=== PATIENT | female | born 1935 | race Caucasian/White ===

== ENCOUNTER → 2017-12-31 | Outpatient (CLI) | payer OTHER, MEDICARE | LOC: RAD 10:02 | DX: Z12.31 Encounter for screening mammogram for malignant neoplasm of breast (principal) ==

== ENCOUNTER → 2018-01-07 | Outpatient (CLI) | payer OTHER, MEDICARE | LOC: RAD 13:12 | DX: M47.26 Other spondylosis with radiculopathy, lumbar region (principal); M41.86 Other forms of scoliosis, lumbar region ==

== ENCOUNTER → 2019-01-05 | Outpatient (CLI) | payer OTHER, MEDICARE | LOC: RAD 10:54 | DX: Z12.31 Encounter for screening mammogram for malignant neoplasm of breast (principal) ==

== ENCOUNTER → 2019-01-15 | Outpatient (CLI) | payer OTHER, MEDICARE | LOC: ULTRA 00:42 | DX: N60.01 Solitary cyst of right breast (principal); N60.41 Mammary duct ectasia of right breast; N63.23 Unspecified lump in the left breast, lower outer quadrant; N60.42 Mammary duct ectasia of left breast ==

== ENCOUNTER → 2019-12-22 | Outpatient (CLI) | payer OTHER, MEDICARE | LOC: RAD 09:06 | DX: M47.22 Other spondylosis with radiculopathy, cervical region (principal); M48.02 Spinal stenosis, cervical region; M43.12 Spondylolisthesis, cervical region; M12.88 Other specific arthropathies, not elsewhere classified, other specified site; M25.78 Osteophyte, vertebrae ==

== ENCOUNTER → 2019-12-29 | Outpatient (CLI) | payer OTHER, MEDICARE | LOC: MRI 10:08 | DX: M47.22 Other spondylosis with radiculopathy, cervical region (principal); M25.78 Osteophyte, vertebrae; M48.02 Spinal stenosis, cervical region ==

== ENCOUNTER → 2020-01-12 | Outpatient (CLI) | payer OTHER, MEDICARE ==
[~2020-01-12] VITALS: Ht 172.7 cm; Wt 74.8 kg
[~2020-01-12] MED LIST: ASA81BEC PO; BIOTIN PLUS KE1 EACH PO; CALCIUM 600 +1 EAC7 PO; CENTRUM ADULTS1 EACH PO; KRILL OIL500 MG PO; LISINOPRIL-HCT1 EAC1 PO; METAMUCIL PACK3.4 GM PO; REQUIP 1 MG TABL1 M1 PO; ROSADAN45 GM; TOPROL XL50 MG PO; VITAMIN B12-FO1 EAC1 PO; ZOCOR20 MG PO
--- NOTE | ~2020-01-12 | HPC ---
[facility] [place] [address] PAIN MANAGEMENT CONSULTATION Name: FRANCA FORD Room #: REG KIERRA Kamlesh#: [id number] Admission: 01/12/20 Attend Phys: Baldo Reid DO Discharge: Date of : 37 Report #: [id number] THIS REPORT FOR: cc: Kris Castellon,Baldo Mullins DO ~ CC: Baldo Castellon MD DATE OF SERVICE: 01/12/2020 CHIEF COMPLAINT: Neck pain, right upper extremity pain with paresthesias. HISTORY OF PRESENT ILLNESS: As you know, the patient is a very pleasant 84-year-old female who reports acute onset of neck pain, right upper extremity pain and paresthesia that began 12/17/2019. She denies any specific injury or trauma. The patient initially thought she "slept wrong." Unfortunately, her symptoms did not improve with tincture of time. She sought treatment through wudc-[id number]-[id number] medications from her local pharmacy, again with no improvement in symptoms. She then discussed her case with her PCP who provided her a prednisone therapy, which was extremely helpful in alleviating symptoms while she was on the medication, but unfortunately, her symptoms quickly returned. After return of symptoms, she was then referred to undergo cervical imaging to determine the potential cause of the symptoms she is experiencing. She was then subsequently referred to our clinic to discuss treatment options after the findings show changes concerning for cervical radicular involvement. The patient reports today pain is continuous with rhythmic somewhat throbbing type symptoms. She describes the pain as shooting, aching, throbbing, numbness and tingling. The patient's current pain score 5/10, daily average of 5-8/10, worst pain has been 10/10. The patient states that walking, reaching for anything with her right arm or twisting her neck to the right exacerbates symptoms. Her pain is improved with sitting for long periods of time, lying down to rest on the left side of her body. Otherwise, she has found no improvement in symptoms with treatment other than the prednisone therapy, which was transient in its effect. She has been referred to our service to discuss treatment options for suspected cervical radiculopathy. PAST MEDICAL HISTORY: 1. Hypertension. 2. History of hepatitis. 3. GERD. 4. Degenerative joint disease. 5. Osteoarthritis. 6. Peptic ulcer disease. [address] [address] PAIN MANAGEMENT CONSULTATION Name: FRANCA FORD Room #: REG CLI Kamlesh#: [id number] Admission: 01/12/20 Attend Phys: Baldo Reid DO Discharge: Date of : 37 Report #: [id number] 7. Restless leg syndrome. 8. Dyslipidemia. PAST SURGICAL HISTORY: 1. Excision of an abscess of the left breast in 8. 2. Surgery for hepatitis in 1959. 3. Cholecystectomy in 1960. 4. Hemorrhoidectomy. 5. Hysterectomy. 6. Left breast biopsy. 7. Surgery for vertigo. SOCIAL HISTORY: The patient denies tobacco, IV or illicit drug use. She admits to an occasional alcohol beverage. 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 She is not receiving workmen's compensation nor is she trying to obtain disability benefits. She is not in litigation in regards to pain. She is unaccompanied today. REVIEW OF SYSTEMS: Positive for weight change, decrease in appetite, fatigue and weakness, wearing corrective eyewear, hearing loss with tinnitus, nosebleeds, mouth sores, shortness of breath with walking or lying flat, loss of appetite, frequent urination, nocturia, incontinence and dribbling to urine, varicose veins, tremors, nervousness, slow to heal after cuts, bleeding and bruising tendencies, neck pain, right upper extremity pain and paresthesias. All other review of systems negative per 12-point review of systems other than those listed in history of present illness. Pain impact score 19 of 70 indicating mild interference of daily activities secondary to pain. ALLERGIES: CODEINE, CITALOPRAM. CURRENT MEDICATIONS: Simvastatin 20 mg once a day, lisinopril/hydrochlorothiazide 20/12.5 mg once a day, metoprolol 50 mg once a day, ropinirole 1 mg once a day, metronidazole cream applied topically to affected areas, multivitamin 1 tab per day, calcium carbonate 1 tab per day, cyanocobalamin 1 tab per day, Krill oil 500 mg once a day, aspirin 81 mg per day, Metamucil 3.4 grams up to twice a day, biotin and keratin tablet 1 tab per day. IMAGING: MRI cervical spine obtained 12/29/2019 shows degenerative changes with reversal of the normal cervical lordosis. No significant central canal stenosis. There are variable degrees of neural foraminal stenosis, the most significant at the C5-C6 level, which shows moderate to severe. PQRS: The patient has arthritic changes of the cervical spine, lumbar spine, [facility] [address] [place] [address] PAIN MANAGEMENT CONSULTATION Name: FRANCA FORD Room #: REG KIERRA Whitlock#: [id number] Admission: 01/12/20 Attend Phys: Baldo Reid DO Discharge: Date of : 37 Report #: [id number] bilateral hands, bilateral fingers and knees. No rheumatoid arthritis. She is placing pain intensity anywhere from 5-8/10. She is not a fall risk, but has had a fall in last 3 months. Apparently, she tripped over objects at home, which have been corrected by clearing walkways. She is not on blood thinners. She is treated for hypertension. She is not on chronic opioids and has a low opioid addiction potential. Pain impact score is 19 of 70 indicating ykbt-ic-bhsquijr interference of daily activities secondary to pain. PHYSICAL EXAMINATION: VITAL SIGNS: Blood pressure 117/68, pulse is 71, respiratory rate 14 and unlabored. The patient is 99% on room air. Height 5 feet 8 inches tall, weight 165 pounds, BMI calculated 25.1. GENERAL: Well-developed, well-nourished, well-hydrated 84-year-old female appearing stated age, pain is rated today 5-8/10. HEENT: Normocephalic, atraumatic. Pupils equal, round, reactive to light. Extraocular muscles are intact. NEUROLOGIC: Speech fluent. The patient deemed a good historian. LUNGS: Clear. No wheeze, rhonchi or rales. CARDIOVASCULAR: Regular. No appreciable gallop, no rub. ABDOMEN: Soft, nontender and normoactive bowel sounds. EXTREMITIES: Show no clubbing, no cyanosis, and no edema. MUSCULOSKELETAL: Upper extremity strength appears symmetrical 5/5. Muscle bulk and tone is equal and symmetrical in comparing right upper extremity to left. Spurling's test positive right, negative left. Cervical provocation testing is met with increasing cervical pain, no radiation of symptoms. Cervical traction improves right arm pain. There is moderate restriction of motion to the cervical rotation to the right, mild to moderate left. No surgical scars. She is intact to light touch from C5-T1 dermatomes. ASSESSMENT: 1. Cervical radiculopathy. 2. Neural foraminal stenosis of the cervical spine. 3. Degeneration of the cervical spine. 4. Cervical spondylosis with radiculopathy. 5. Chronic intractable pain. PLAN: 1. Based on today's physical exam and history the patient has provided, the description the patient uses in regards to pain as well as location of symptoms, likely source of the patient's pain is cervical radiculopathy. The patient and I did spend about 20 minutes of time today reviewing her recent MRI describing the findings therein and how they correlate to her symptoms. It does appear that she is suffering from the neural foraminal stenosis noted at the C5-C6 level given the distribution of symptoms on the right today. We discussed with the patient treatment options for cervical radiculopathy secondary to [place] [address] PAIN MANAGEMENT CONSULTATION Name: FRANCA FORD Room #: REG KIERRA Whitlock#: [id number] Admission: 01/12/20 Attend Phys: Baldo Reid DO Discharge: Date of : 37 Report #: [id number] We discussed physical therapy, stretching exercises and traction techniques as a treatment option. We discussed medication management utilizing neuropathic pain medication such as nortriptyline, amitriptyline, Cymbalta, Lyrica or gabapentin. We discussed cervical epidural injections under fluoroscopic guidance, for which the patient was referred to our service. We discussed finally surgical decompression and foraminotomies to alleviate the patient's symptoms. After reviewing the risks and benefits of all proposed treatment options, the patient chose to begin with a cervical epidural injection under fluoroscopic guidance. 2. The patient was advised risks and benefits of a cervical epidural injection. These risks include but are not necessarily limited to bleeding, bruising, infection, worsening pain, no relief of pain, also risk of temporary or permanent muscle weakness, temporary or permanent nerve damage, possible paralysis and . The patient states understood and wished to proceed. 3. No medication changes made at today's visit. The patient will continue current medical therapy as previously prescribed. 4. We will see the patient back in followup visit in 30 days. At that time determine if a repeat cervical epidural injection might be warranted. 5. We wish to thank Dr. Castellon for the referral of the patient to our clinic. We will keep you apprised of response to treatment as we address cervical radiculopathy. Again, we wish to thank you for the opportunity to see this patient in consultation. PROCEDURE NOTE DESCRIPTION OF PROCEDURE: Cervical epidural steroid injection under fluoroscopic guidance. This is the first procedure of the first series that the patient is undergoing. After obtaining written consent, the patient was taken back to the fluoroscopy suite and placed in a prone position with separate pillows under chest and forehead to decrease cervical lordosis. The skin overlying the cervical area was prepped and draped in an aseptic fashion. The lower cervical vertebral interspace was identified by AP fluoroscopy. The skin and subcutaneous tissue overlying the target site of injection was anesthetized using 3 mL of 1% lidocaine. A 20-gauge 3.5 inch Tuohy needle was advanced under fluoroscopic guidance toward the epidural space using a midline approach. The epidural space was identified using a loss of resistance to air technique. After negative aspiration for heme or cerebrospinal fluid, a total of 1 mL of Omnipaque was injected. A cervical epidurogram was confirmed using AP and oblique fluoroscopy. After negative aspiration for heme or cerebrospinal fluid, 5 mL of a solution containing 2 mL 40 mg/mL 80 mg total triamcinolone along with 3 mL of lidocaine 1% was injected in increments. Contrast spread was noted from posterior epidural space. [facility] [address] [place] [address] PAIN MANAGEMENT CONSULTATION Name: FRANCA FORD Room #: REG [facility].#: [id number] Admission: 01/12/20 Attend Phys: Baldo Reid DO Discharge: Date of : 37 Report #: [id number] needle was then retracted approximately mcfp and the needle track was flushed with 1 mL of 1% lidocaine. There were no apparent new sensory deficits in the upper extremities present following the procedure. A sterile bandage was placed over the injection site. The heart rate, pulse oximetry and blood pressure were continuously monitored after the procedure. There were no apparent complications. The patient tolerated the procedure well and was carefully escorted in the recovery room in stable condition. After meeting discharge criteria, the patient was discharged home. By: [id number] Baldo Reid DO /nt
[2020-01-12 14:19] VITALS: BP 117/68
--- NOTE | 2020-01-12 14:33 | NUR ---
Pain Clinic Assessment: 1. History of Osteoarthritis: KNEES C-SPINE LUMBAR HANDS/FINGERS History of Rheumatoid Arthritis: 2. Height: 5 ft. 8 in. 172.7 cm. Weight: 165.0 lb. oz. 74.844 kg. Patient's BMI: 25.1 3. Vital Signs: BP: 117/68 Pulse: 71 Resp: 14 Temp: 02 Sat: 99 ECG Mon: 4. Pain Intensity: 5-8 5. Fall Risk: Dizziness: N Needs help standing or walking: N Fallen in the last 3 months: Y Fall risk comments: 6. Patient on Blood Thinner: None 7. History of Hypertension: Y 8. Opioid Therapy greater than 6 weeks: N Opiate Contract Signed: 9. Risk Assessment Tool Provided: 1-LOW RISK 10. Functional Assessment Tool: 11. Recreational Drug Use: Never Drug Type: Tobacco Use: Never Smoker Tobacco Type: Amount or Packs/day: How Many Years: Alcohol Use: No Frequency: Quant:
== END | disposition home or self-care (01) ==
LOC: PAIN 06:53
DX: M50.10 Cervical disc disorder with radiculopathy, unspecified cervical region (principal); M48.02 Spinal stenosis, cervical region; M47.22 Other spondylosis with radiculopathy, cervical region; G89.29 Other chronic pain; I10 Essential (primary) hypertension; E78.5 Hyperlipidemia, unspecified; M19.90 Unspecified osteoarthritis, unspecified site; K21.9 Gastro-esophageal reflux disease without esophagitis; Z98.890 Other specified postprocedural states; Z79.899 Other long term (current) drug therapy; Z90.710 Acquired absence of both cervix and uterus; Z86.19 Personal history of other infectious and parasitic diseases; Z90.49 Acquired absence of other specified parts of digestive tract; Z88.8 Allergy status to other drugs, medicaments and biological substances; Z87.19 Personal history of other diseases of the digestive system; Z79.82 Long term (current) use of aspirin

== ENCOUNTER → 2020-01-19 | Outpatient (CLI) | payer OTHER, MEDICARE | LOC: BC 09:43 | DX: Z12.31 Encounter for screening mammogram for malignant neoplasm of breast (principal) ==

== ENCOUNTER → 2020-02-02 | Outpatient (CLI) | payer OTHER, MEDICARE ==
[~2020-02-02] MED LIST changes: +NORTRIPTYLINE H25 M3 PO; +TYLENOL ARTHRI650 MG PO
== END ==
LOC: ULTRA 09:54
PROVIDERS: ATTEND Neuromusculoskeletal Medicine & OMM
DX: R92.8 Other abnormal and inconclusive findings on diagnostic imaging of breast (principal); N64.9 Disorder of breast, unspecified

== ENCOUNTER → 2020-02-09 | Outpatient (CLI) | payer OTHER, MEDICARE ==
[~2020-02-09] VITALS: Ht 172.7 cm; Wt 73.2 kg
[~2020-02-09] MED LIST changes: -TYLENOL ARTHRI650 MG PO
[2020-02-09 09:30] VITALS: BP 147/77
--- NOTE | 2020-02-09 09:41 | NUR ---
Pain Clinic Assessment: 1. History of Osteoarthritis: KNEES C-SPINE LUMBAR HANDS/FINGERS History of Rheumatoid Arthritis: Not Applicable 2. Height: 5 ft. 8 in. 172.7 cm. Weight: 161.4 lb. oz. 73.211 kg. Patient's BMI: 24.5 3. Vital Signs: BP: 147/77 Pulse: 78 Resp: 14 Temp: 02 Sat: 99 ECG Mon: 4. Pain Intensity: 4 5. Fall Risk: Dizziness: N Needs help standing or walking: N Fallen in the last 3 months: N Fall risk comments: 6. Patient on Blood Thinner: None 7. History of Hypertension: Y 8. Opioid Therapy greater than 6 weeks: N Opiate Contract Signed: 9. Risk Assessment Tool Provided: 1-LOW RISK 10. Functional Assessment Tool: 11. Recreational Drug Use: Never Drug Type: Tobacco Use: Never Smoker Tobacco Type: Amount or Packs/day: How Many Years: Alcohol Use: No Frequency: Quant:
--- NOTE | 2020-02-09 13:31 | HPC ---
[facility] [address] [place] [address] PAIN MANAGEMENT CONSULTATION Name: FRANCA FORD Room #: REG KIERRA Kamlesh#: [id number] Admission: 02/09/20 Attend Phys: Baldo Reid DO Discharge: Date of : 37 Report #: [id number] THIS REPORT FOR: cc: Kris Castellon Steven F. DO Johnson, James E. DO ~ DATE OF SERVICE: 02/09/2020 CHIEF COMPLAINT: Neck pain, right upper extremity pain and paresthesias. HISTORY OF PRESENT ILLNESS: As you know, the patient is a very pleasant 84-year-old female, seen in consultation today, having reported excellent benefit with a cervical epidural injection under fluoroscopic guidance provided at our visit of 01/12/2020. The patient reports 90% improvement in overall pain with a slow and progressive return of symptoms. She is continuing to experience numbness, tingling, burning, electrical like sensations radiating from the upper shoulder area all the way down into the hands consistent with a cervical radiculopathy. She returns today with EMG, which shows only changes within the abductor pollicis brevis on the right, otherwise a normal EMG study. She does have a tvnxsftq-qx-otpixv neural foraminal stenosis at C5-C6 level consistent with the distribution of a cervical radiculopathy radiating towards the right. The patient reports that her symptoms are exacerbated with sleeping on her right side for which she is limited to lying on that side due to vertigo when she lies on left or on her back. 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 The patient and I discussed this again today, the fact that she has excellent improvement with the cervical epidural injection, would indicate a cervical origin for her symptoms. She returns today to discuss treatment options. We have just recently received information from [facility] from the guidelines standpoint indicating that epidural injection should be utilized only in emergent cases and that elective case should be delayed due to the potential effects with steroids and the COVID-19 virus. She returns to discuss other treatment options. ALLERGIES: CODEINE, CITALOPRAM. CURRENT MEDICATIONS: Simvastatin, lisinopril, hydrochlorothiazide, metoprolol, ropinirole, multivitamin, calcium carbonate, cyanocobalamin, Krill oil, aspirin, Metamucil, biotin and keratin. SOCIAL HISTORY: The patient denies tobacco, IV or illicit drug use. She admits to occasional alcohol beverage. 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 She is unaccompanied today. IMAGING: [place] [address] PAIN MANAGEMENT CONSULTATION Name: FRANCA FORD Room #: REG KIERRA Whitlock#: [id number] Admission: 02/09/20 Attend Phys: Baldo Reid DO Discharge: Date of : 37 Report #: [id number] PQRS: The patient has known arthritic changes of the cervical spine, lumbar spine, bilateral hands, bilateral fingers and knees. No rheumatoid arthritis. She is placing pain today at 4/10. She is not a fall risk, has not had fallen in last 3 months. She is not on blood thinners, but is treated for hypertension. She is not on chronic opioids and has a low opioid addiction potential. Pain impact score 24/70. Moderate interference of daily activities secondary to pain. PHYSICAL EXAMINATION: VITAL SIGNS: Blood pressure 147/77, pulse 78, respiratory rate 14 and unlabored. The patient is 99% on room air. Height 5 feet 8 inches tall, weight 161.4 pounds and BMI calculated 24.5. GENERAL: Well-developed, well-nourished, well-hydrated 84-year-old female. She appears her stated age, placing pain today at 4/10. HEENT: Normocephalic, atraumatic. Pupils equal, round, reactive to light. Speech fluent. EXTREMITIES: Show no clubbing, no cyanosis, and no edema. MUSCULOSKELETAL: Upper extremity strength appears symmetrical 5/5. There is some weakness over the abductors of the thumb on the right when compared to left. There appears to be mild atrophy in the area of the abductor pollicis. Remaining upper extremity muscle bulk and tone appears equal and symmetrical. Cervical provocation testing is met with increased pain with rotation, lateral flexion to the right. Spurling's test positive right. ASSESSMENT: 1. Cervical radiculopathy. 2. Neural foraminal stenosis of the cervical spine. 3. Degeneration of the cervical spine. 4. Cervical spondylosis with radiculopathy. 5. Chronic intractable pain. PLAN: 1. The patient returns today in followup visit having noted 90% improvement in overall pain with the epidural injection lasting for 2 weeks. She was very pleased with response to the epidural injection. This would indicate to this physician that the source of the patient's right upper extremity symptoms is related to the cervical radiculopathy. This does correlate with the EMG, which shows minimal changes on the abductor pollicis brevis on the right, but otherwise a normal study indicating no carpal tunnel or other neuropathies. I am please also to indicate the EMG does not show any chronic cervical radiculopathy. This appears to be a neuropraxia type of event and could be treated conservatively. We discussed the options of treatment again today. Given the restrictions of the COVID virus exposure of steroid, we would recommend holding off on steroid injections unless her function decreases to a level where she can no longer go about activities of daily living, and at that point, the [facility] guidelines indicate that this would then become a semi-urgent [facility] [address] [place] [address] PAIN MANAGEMENT CONSULTATION Name: FRANCA FORD Room #: REG CLRikki Whitlock#: [id number] Admission: 02/09/20 Attend Phys: Baldo Reid DO Discharge: Date of : 37 Report #: [id number] case and cervical epidural injection would be recommended despite the risks of steroid exposure during the time of COVID. The patient will withhold the next in the series of cervical epidural injections, but consider if her symptoms do worsen. 2. We did discuss with the patient treatment options including adjustments in her current sleeping positions and adding a contour type pillow, which can stabilize the cervical spine more efficiently and this could alleviate some of the nerve neuropraxia she is experiencing from the uiqqjrrp-dh-rpwrkw foraminal stenosis at the C5-C6 level. This would be a very conservative option for treatment as the patient notes most of her symptoms at night. We discussed additional medications and have agreed to start the patient on nortriptyline for neuropathic pain control. We also discussed surgical options with the patient, but given this time of a COVID, the reduction in an elective procedure, I do not feel this is going to be an option at this time, but could be certainly an option in the future. After our discussion, the patient chose to make adjustments in her sleeping conditions and medication management. 3. The patient was provided prescription on nortriptyline 25 mg dose 1 tab p.o. at bedtime. She will do this for 7 days. If no improvement in symptoms, no side effects of sleepiness, disorientation, confusion, mental slowing, then move forward with 2 tabs per day or total of 50 mg dose. I have sent a prescription of 25 mg nortriptyline tablets to a local pharmacy to begin the medications. She can contact our clinic with questions or concerns, #60 tablets were provided with 1 refill, assuming good efficacy. 4. We will see the patient back in followup visit to discuss other treatment options if she wishes to do so. She wishes to delay the cervical epidural injection given the risks that she might have with a steroid exposure at this time. She is at risk given her age for a worsened COVID virus experience and increasing use of steroids at this time has been reported as a relative contraindication. She will contact our clinic if she wishes to move forward with this option. <ELECTRONICALLY SIGNED> By: Baldo Reid DO 02/09/20 1331 [id number] Baldo eRid DO /nt
== END ==
LOC: PAIN
DX: M47.22 Other spondylosis with radiculopathy, cervical region (principal); M48.02 Spinal stenosis, cervical region; M79.641 Pain in right hand; R20.2 Paresthesia of skin; G89.4 Chronic pain syndrome; Z88.5 Allergy status to narcotic agent; Z88.8 Allergy status to other drugs, medicaments and biological substances; Z79.899 Other long term (current) drug therapy

== ENCOUNTER → 2020-03-30 | Outpatient (CLI) | payer OTHER, MEDICARE ==
[~2020-03-30] VITALS: Ht 172.7 cm; Wt 74.7 kg
[~2020-03-30] MED LIST changes: +TYLENOL ARTHRI650 MG PO
[2020-03-30 13:28] VITALS: BP 119/62
--- NOTE | 2020-03-30 13:41 | NUR ---
Pain Clinic Assessment: 1. History of Osteoarthritis: KNEES C-SPINE LUMBAR HANDS/FINGERS History of Rheumatoid Arthritis: DENIES 2. Height: 5 ft. 8 in. 172.7 cm. Weight: 164.6 lb. oz. 74.662 kg. Patient's BMI: 25.0 3. Vital Signs: BP: 119/62 Pulse: 64 Resp: 16 Temp: 02 Sat: 99 ECG Mon: 4. Pain Intensity: 5 5. Fall Risk: Dizziness: N Needs help standing or walking: N Fallen in the last 3 months: N Fall risk comments: 6. Patient on Blood Thinner: None 7. History of Hypertension: Y 8. Opioid Therapy greater than 6 weeks: N Opiate Contract Signed: 9. Risk Assessment Tool Provided: 1-LOW RISK 10. Functional Assessment Tool: 11. Recreational Drug Use: Never Drug Type: Tobacco Use: Never Smoker Tobacco Type: Amount or Packs/day: How Many Years: Alcohol Use: No Frequency: Quant:
--- NOTE | 2020-04-05 11:29 | HPC ---
[facility] [place] [address] PAIN MANAGEMENT CONSULTATION Name: FRANCA FORD Room #: REG KIERRA Kamlesh#: [id number] Admission: 03/30/20 Attend Phys: Baldo Reid DO Discharge: Date of : 37 Report #: [id number] THIS REPORT FOR: cc: Helene Bazan DNP, Mary E. DNP Johnson, James E. DO ~ DATE OF SERVICE: 03/30/2020 CHIEF COMPLAINT: Neck pain, right upper extremity pain with paresthesias. HISTORY OF PRESENT ILLNESS: As you know, the patient is an 84-year-old female seen in consultation per the request of her primary care physician, Kris Castellon on 01/12/2020. There was concern the patient may be suffering from cervical radiculopathy. It was noted that the patient's EMG performed 05/02/2018 showed no concerning findings. From an EMG standpoint all connections were normal. The patient underwent MRI of the cervical spine on 12/22/2019, which showed degenerative changes in the mid lower cervical area with reversal of cervical lordosis secondary to severe disk narrowing. There was osteophyte formation and some neural foraminal stenosis, but no lateralizing features. She was referred to our clinic to trial an epidural injection. She underwent the epidural injection prior to the COVID restrictions. Unfortunately, we are unable to perform a second in the series due to COVID restrictions and steroid exposures in older individuals. They have now relaxed the regulations in regards to epidural injections and the patient has returned. We trialed the patient on nortriptyline 25 mg p.o. at bedtime with plans to escalate to 50 mg, but the patient states she was somewhat sleepy and disoriented with medication and subsequently discontinued its use. She cannot recall whether or not she saw improvement in symptoms. She returns today in followup visit indicating a pain score of 5/10. States her pain is sharp, constant numbness and tingling in sensation, exacerbated with use of her right upper extremity. Previous epidural injection reportedly gave improvement in symptoms of approximately 50%, lasting for about a week to 2 weeks. She does report long-term improvement in her numbness and tingling, but the pain still remains. She returns today to discuss the possibility of undergoing second in series of cervical epidural injections. ALLERGIES: CODEINE, CITALOPRAM. CURRENT MEDICATIONS: Simvastatin, lisinopril, hydrochlorothiazide, metoprolol, ropinirole, multivitamin, calcium carbonate, cyanocobalamin, Krill oil, aspirin, Metamucil, biotin and keratin. SOCIAL HISTORY: The patient denies tobacco, IV or illicit drug use. Admits to occasional alcohol beverage. 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 [address] PAIN MANAGEMENT CONSULTATION Name: FRANCA FORD Room #: REG KIERRA Whitlock#: [id number] Admission: 03/30/20 Attend Phys: Baldo Reid DO Discharge: Date of : 37 Report #: [id number] IMAGING: No new imaging available. PQRS: The patient has known arthritic changes of the cervical spine, lumbar spine, bilateral hips, bilateral fingers and knees. No rheumatoid arthritis. She is placing pain intensity today 5/10. She is not a fall risk, has not had a fall in last 3 months. She is not on blood thinners, but is treated for hypertension. She is not on chronic opioids and has a low opiate addiction potential based on our assessment tool. Pain impact is calculated and 24/70 indicating moderate interference of daily activities secondary to pain. PHYSICAL EXAMINATION: VITAL SIGNS: Blood pressure 119/62, pulse 64, respiratory rate 16 and unlabored, the patient is 99% on room air. Height 5 feet 8 inches tall, weight 164.6 pounds, BMI calculated 25.0. GENERAL: Well-developed, well-nourished, well-hydrated 84-year-old female appearing stated age, pain is rated today 5/10. HEENT: Normocephalic, atraumatic. Pupils equal, round, reactive. EXTREMITIES: Show no clubbing, no cyanosis. MUSCULOSKELETAL: Upper extremity strength is symmetrical again today 5/5. Muscle bulk and tone equal and symmetrical. There does appear to be some weakness of the abductors of the thumb on the right when compared to left. There is mild atrophy of the area. Spurling's test is positive right. ASSESSMENT: 1. Cervical radiculopathy. 2. Neuroforaminal stenosis of the cervical spine. 3. Degeneration of the cervical spine. 4. Cervical spondylosis with radiculopathy. 5. Chronic intractable pain. PLAN: 1. The patient returns today in followup visit prepared to undergo next in the series of cervical epidural injections. The patient reports about a 50% improvement in overall pain with the cervical epidural injection with good improvement of the paresthesias she was experiencing in the right upper extremity. She reports pain today at level of 5/10, actually higher than her initial evaluation. We have discussed this with the patient today. She has suffered no new injury or trauma. She wishes to undergo the next in a series of cervical epidural injections in hopes of improving pain. She does have appointment with her new primary care physician, nurse practitioner, Helene Bazan in the near future and referrals may be necessary to surgery if the epidural injections are ineffective. We will keep you apprised of her response to this injection. 2. No medication changes made at today's visit. We discontinued the patient on her nortriptyline. We will continue on her current dosing of medications [address] [address] PAIN MANAGEMENT CONSULTATION Name: FRANCA FORD Room #: REG KIERRA Whitlock#: [id number] Admission: 03/30/20 Attend Phys: Baldo Reid DO Discharge: Date of : 37 Report #: [id number] written by her primary care physician. 3. We will see the patient back in followup visit for possible third in the series of cervical epidural injections assuming the patient received greater than 50% improvement in overall pain for an extended period of time. PROCEDURE NOTE: DESCRIPTION OF PROCEDURE: C7-T1 cervical epidural steroid injection under fluoroscopic guidance. This is the second procedure of the first series that the patient is undergoing. After obtaining written consent, the patient was taken back to the fluoroscopy suite and placed in a prone position with separate pillows under chest and forehead to decrease cervical lordosis. The skin overlying the cervical area was prepped and draped in an aseptic fashion. The C7-T1 vertebral interspace was identified by AP fluoroscopy. The skin and subcutaneous tissue overlying the target site of injection was anesthetized using 3 mL of 1% lidocaine. A 20-gauge 3-1/2 inch Tuohy needle was advanced under fluoroscopic guidance toward the epidural space using a right parasagittal approach. The epidural space was identified using a loss of resistance to air technique. After negative aspiration for heme or cerebrospinal fluid, a total of 1 mL of Omnipaque was injected. A cervical epidurogram was confirmed using AP and oblique fluoroscopy. After negative aspiration for heme or cerebrospinal fluid, 5 mL of a solution containing 2 mL 40 mg per mL, 80 mg total triamcinolone along with 3 mL lidocaine 1% was injected in increments. Contrast spread was noted from posterior epidural space. The needle was then retracted approximately snf and the needle track was flushed with 1 mL of 1% lidocaine. There were no apparent new sensory deficits in the upper extremities present following the procedure. A sterile bandage was placed over the injection site. The heart rate, pulse oximetry and blood pressure were continuously monitored after the procedure. There were no apparent complications. The patient tolerated the procedure well and was carefully escorted in the recovery room in stable condition. After meeting discharge criteria, the patient was discharged home. <ELECTRONICALLY SIGNED> By: Baldo Reid DO 04/05/20 1129 1522 1855 Baldo Reid DO /nt
== END | disposition home or self-care (01) ==
LOC: PAIN 06:50
DX: M50.10 Cervical disc disorder with radiculopathy, unspecified cervical region (principal); M48.02 Spinal stenosis, cervical region; M47.22 Other spondylosis with radiculopathy, cervical region; G89.29 Other chronic pain; I10 Essential (primary) hypertension; M19.90 Unspecified osteoarthritis, unspecified site; Z98.890 Other specified postprocedural states; Z79.899 Other long term (current) drug therapy; Z88.8 Allergy status to other drugs, medicaments and biological substances

== ENCOUNTER → 2020-08-09 | Outpatient (CLI) | payer OTHER, MEDICARE ==
[~2020-08-09] MED LIST changes: +CLORAZEPATE D3.75 M1 PO; +NORCO 10-325 T1 EACH PO; +XARELTO10 MG PO
== END ==
LOC: BC 08:04
PROVIDERS: ATTEND Nurse Practitioner
DX: N64.89 Other specified disorders of breast (principal); N63.20 Unspecified lump in the left breast, unspecified quadrant

== ENCOUNTER 2020-08-27 18:52 | Inpatient (IN) | payer OTHER, MEDICARE ==
[~2020-08-27] VITALS: Ht 172.7 cm; Wt 71.7 kg
[2020-08-27 18:52] VITALS: BP 159/74
[~2020-08-27 18:52] MED LIST changes: -CLORAZEPATE D3.75 M1 PO; -NORCO 10-325 T1 EACH PO; -XARELTO10 MG PO
[2020-08-27] MEDS ORDERED: CLORAZEPATE D3.75 M1 PO (19:06)
[2020-08-27 20:34] LABS: CALCIUM 8.8 mg/dL (8.5-10.1); CREATININE 0.8 mg/dL (0.6-1.0); POTASSIUM 3.7 mmol/L (3.5-5.1)
[2020-08-27 21:20] LABS: ABSOLUTE NEUTROPHILS 7.9 thou/uL (1.4-8.2); BASOPHILS 0.6 % (0.0-2.0); EOSINOPHILS 1.3 % (0.0-3.0); HEMATOCRIT 38.4 % (37.0-47.0); HEMOGLOBIN 13.1 gm/dL (12.0-15.0); LYMPHOCYTES 10.4 % (24.0-44.0); MCH 31.5 pg (26.0-34.0); MCHC 34.2 g/dL (28.0-37.0); MCV 92.3 fL (80.0-100.0); MONOCYTES 11.1 % (1.0-8.0); PLATELET COUNT 254 thou/uL (150-400); POLYS 76.6 % (36.0-66.0); RBC 4.16 mil/uL (4.20-5.00); RDW 13.2 % (10.5-14.5); WBC 10.3 thou/uL (4.0-11.0)
[2020-08-27 23:25] VITALS: BP 182/83
[2020-08-27 23:30] VITALS: BP 169/90
--- NOTE | 2020-08-28 03:46 | NUR ---
ASSUMED PT'S CARE @ 2840. PT ADMITTED TO 434 FROM ER. ALERT ANAD ORIENTED. BEDREST C/O RT HIP FRACTURE. ADMISSION HX AND ASSESSMENT DOCUMENTED. CONSENS SIGNED. PT ORIENTED TO AND CALL LIGHT. RT PALM AND RT ELBOW SKIN TEAR. PICTURES TAKEN. BRUISES NOTED. PT NPO AFTER MIDNIGHT. POSSIBLE SURGERY TODAY. FALL PRECAUTION IN PLACE. CALL LIGHT WITHIN REACH. HOURLY ROUNDINGS MADE. WILL CONTINUE TO MONITOR.
[2020-08-28 04:21] VITALS: BP 142/73
[2020-08-28 05:28] LABS: CALCIUM 8.6 mg/dL (8.5-10.1); CREATININE 0.8 mg/dL (0.6-1.0); POTASSIUM 3.6 mmol/L (3.5-5.1)
[2020-08-28 09:00] VITALS: BP 177/94
--- NOTE | 2020-08-28 11:10 | NUR ---
ASSUMED CARE AT 0700. A&0 X 4. PT IS ON 2.0 L OF OXYGEN. PT IS TOLERATING WELL. PATIENT STATES THAT HER PAIN 2/10 BUT WHEN SHE COUGHS, IT IS 10/10. PT IS NPO. POSSIBILITY OF HAVING SURGERY TODAY. IF SHE DOES NOT HAVE SURGERY, SHE WOULD LIKE TO HAVE FOOD. VS IS NORMAL. BP WAS SLIGHTLY ELEVATED BUT WE HAVE GIVEN BLOOD PRESSURE MEDICATION TO DECREASE BP. SKIN IS INTACT. THERE ARE BRUSIES AND REAPPLY BANDAGE WITH GAUZE ON RIGHT ELBOW.PT IS ON THE LOWEST POSITION ON THE BED. CALL LIGHT WITHIN REACH. SPOKE WITH REGARDING VISTITON RULES SUCH ONLY HIM CAN BE HER ONLY VISTOR.
[2020-08-28 14:56] VITALS: BP 147/69
[2020-08-28 19:04] VITALS: BP 153/68
[2020-08-29] VITALS (10 sets, daily range): BP systolic 113–169; BP diastolic 52–83
--- NOTE | 2020-08-29 04:25 | NUR ---
PT LYING IN BED. FENTANYL PROVIDING PAIN RELIEF. PLAN FOR SURGERY 08/29. RESTING COMFORTABLY. NO NEEDS VOICED. CALL LIGHT WITHIN REACH. FREQUENT OBSERVATION.
[2020-08-29 05:55] LABS: HEMATOCRIT 37.7 % (37.0-47.0); HEMOGLOBIN 12.6 gm/dL (12.0-15.0); MCH 30.9 pg (26.0-34.0); MCHC 33.4 g/dL (28.0-37.0); MCV 92.6 fL (80.0-100.0); RBC 4.07 mil/uL (4.20-5.00); WBC 8.1 thou/uL (4.0-11.0)
[2020-08-29 06:14] LABS: CALCIUM 8.6 mg/dL (8.5-10.1); CREATININE 0.7 mg/dL (0.6-1.0); POTASSIUM 3.5 mmol/L (3.5-5.1)
--- NOTE | 2020-08-29 07:30 | EKG ---
[facility] [address] ELECTROCARDIOGRAM REPORT Name: SUKI FORDGEOVANNAKit Room #: 434-P ADM IN M.R.#: [id number] Admission: 08/27/20 Attend Phys: Pia Nicolas MD Discharge: Date of : 37 Report #: [id number] THIS REPORT FOR: cc: Helene Bazan DNP, Mary E. DNP Lundgren, Craig H. MD 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 : [id number] Requested By: Odilon Saini Order Number: [id number] MD: George Bertrand Measurements Intervals Hedley Rate: 80 P: 43 TN: 189 QRS: -32 QRSD: 138 T: 80 QT: 454 QTc: 524 Interpretive Statements Sinus rhythm Atrial premature complex Left bundle branch block Compared to ECG 12/15/1998 17:53:00 Atrial premature complex(es) now present Left bundle-branch block now present Electronically Signed On 08-29-2020 7:30:34 CDT by George Bertrand [email or web address] <ELECTRONICALLY SIGNED> By: George Bertrand MD, FAC 08/29/20729 35 35 George Bertrand MD, [facility] /EPI
--- NOTE | 2020-08-29 07:56 | HC ---
[facility] [place] [address] CONSULTATION Name: FRANCA FORD Room #: 434-P ADM IN M.R.#: [id number] Admission: 08/27/20 Attend Phys: Pia Nicolas MD Discharge: Date of : 37 Report #: [id number] THIS REPORT FOR: cc: Helene Bazan DNP, Mary E. DNP Clymer, David J. MD ~ CHIEF COMPLAINT: Right femoral neck fracture. HISTORY OF PRESENT ILLNESS: This 85-year-old female is alert, oriented and fully active and independent and lives alone in her own home. She has family here in town. She fell injuring the right hip. She sustained a few other areas of minor contusion to her elbow and wrist and hand. There appeared to be no other significant injuries. She is otherwise healthy and active, and living independently. X-rays in the Emergency Department reveal a displaced fracture of the right femoral neck. At the time of my evaluation, she is alert and oriented and accompanied by her son. She explains that she has been independent and living in her own home and has not had significant previous health problems nor significant previous arthritis issues. She does have family here in town and assistance as needed. She notes she stumbled and fell injuring the right hip and has no other significant complaints or injuries. Objectively, she is alert and oriented and seems perfectly comfortable wile resting in bed. Neck and back appear to be normal. The upper extremities are normal with exception of contusions at the right elbow and the left wrist and hand. The pelvis is stable and seems to be well aligned and is tender over the lateral right aspect consistent with her hip injury. The left lower extremity reveals good movement at the hip, knee and ankle without significant joint discomfort. Neurologic status is normal. The right lower extremity reveals marked discomfort and no movement at the hip consistent with a femoral neck fracture. There is slight shortening and rotational deformity. X-rays of the pelvis and right hip reveal only mild degenerative arthritis of both hips. There is a displaced and unstable fracture of the right femoral neck. IMPRESSION: Right femoral neck fracture with displacement. I have discussed with the patient and her son, the treatment options. They understand and wish to proceed with surgical repair. 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 <ELECTRONICALLY SIGNED> By: Aakash Vigil MD 08/29/20 0756 1123 1525 Aakash Vigil MD /nt
--- NOTE | 2020-08-29 09:27 | NUR ---
ASSESSMENT: CM REVIEWED CHART AND ATTEMPTED TO MEET WITH PATIENT BUT SHE IS CURRENTLY OUT OF THE ROOM FOR SURGERY DUE TO FEMUR FX. CM REACHED OUT TO PATIENTS SON GUNNAR BUT VM WAS LEFT. CM REACHED OUT TO PATIENTS GRANDDAUGHTER TO DISCUSSS. SHE REPORTS THAT PT LIVES IN A HOUSE ALONE. PT HAS ABOUT 2-3 STEPS TO ENTER AND NO STEPS SHE HAS TO USE ONCE INSIDE. PT NORMALLY AMBULATES INDEPENDENTLY AND IS INDEPENDENT WITH ADLS. PT HAS NOT HAD HH IN THE PAST NOR BEEN TO A SNF. CM DISCUSSED ROLE. PT IS TO HAVE RIGHT HIP HEMIARTHROPLASTY TODAY. CM WILL CONTINUE TO FOLLOW TO DISCUSS DISCHARGE PLANS ONCE PATIENT IS ABLE TO PARTICIPATE WITH THERAPIES. CM WILL CONTINUE TO FOLLOW.
--- NOTE | 2020-08-29 12:15 | NUR ---
assumed care at 0700. a&0 x4. surgery on right hip paige at 0800. pt arrived 1115. pt is sleepy after recovery. pt has abductor pillow while in bed. pt vital signs are stable with tolerating liter of 2.0. Pt denies pain or SOA. pt has a hemovac drain and clean & intact dressing on right hip. Pt can tolerate weight bearing. Pt can have clear liquids and can advance to other diet once she can tolerate it. pt complains on skin itching after 30 minutes of being on the 4S. I have gave her noursing skin cream and will continue to monitor. Call light within reach. fall precaution intact. Urinary catheter is intact and has clear yellow void.
[2020-08-29 12:45] LABS: HEMATOCRIT 37.6 % (37.0-47.0); HEMOGLOBIN 12.3 gm/dL (12.0-15.0); MCH 30.6 pg (26.0-34.0); MCHC 32.8 g/dL (28.0-37.0); MCV 93.2 fL (80.0-100.0); RBC 4.03 mil/uL (4.20-5.00); RDW 12.8 % (10.5-14.5); WBC 14.9 thou/uL (4.0-11.0)
--- NOTE | 2020-08-30 04:02 | NUR ---
PT ALERT AND ORIENTED X 4. BEEN VOIDING ADEQUATELYPER BEDPAN. AFEBRILE, DRINKING OKAY.R HIP DRSG C/D/I. NEURO INTACT TO RLE.
[2020-08-30 05:34] LABS: HEMATOCRIT 38.2 % (37.0-47.0); HEMOGLOBIN 12.7 gm/dL (12.0-15.0); MCH 30.8 pg (26.0-34.0); MCHC 33.2 g/dL (28.0-37.0); MCV 92.8 fL (80.0-100.0); RBC 4.12 mil/uL (4.20-5.00); RDW 12.9 % (10.5-14.5); WBC 9.7 thou/uL (4.0-11.0)
--- NOTE | 2020-08-30 08:21 | O ---
[facility] [place] [address] OPERATIVE REPORT Name: FRANCA FORD Room #: 434-P ADM IN M.R.#: [id number] Admission: 08/27/20 Attend Phys: Hiro Sosa MD Discharge: Date of : 37 Report #: [id number] THIS REPORT FOR: cc: Helene Bazan DNP, Mary E. DNP Clymer, David J. MD ~ CC: Hiro Bazan Pia Sharma DATE OF SERVICE: 08/29/2020 PREOPERATIVE DIAGNOSIS: Fracture, right femoral neck. POSTOPERATIVE DIAGNOSIS: Fracture, right femoral neck. PROCEDURE: Right proximal femoral hemiarthroplasty. SURGEON: Aakash Vigil M.D. INDICATIONS: This very active, fit, fully independent 85-year-old female stumbled and fell injuring the right hip. X-rays confirmed a displaced and unstable femoral neck fracture. She has no other significant injuries. We discussed treatment options with the patient and her family. They understand and wish to proceed with surgical repair using a cemented hemiarthroplasty technique. DESCRIPTION OF PROCEDURE: The patient was taken to the operating room where she was placed under general anesthesia. Prophylactic intravenous antibiotics were administered. She was turned to the left lateral decubitus position. The right hip, thigh and leg were meticulously prepped and draped. A slightly curving posterolateral skin incision was made centered over the greater trochanter. This was carried through gluteus and the posterior aspect of the hip was visualized. The short external rotators were taken down and tagged and preserved. A femoral neck fracture was identified and the femoral head was removed and measured at 49 mm in diameter. The neck was trimmed down to an appropriate level. The Holman and Nephew hip system was utilized. A cemented size 12 stem seemed to fit most appropriately. A trial reduction was performed and a 49 mm head with a +4 mm neck length fit nicely demonstrating good stability, alignment, range of motion and leg length. The trial component was removed. A cement restrictor was placed and methyl methacrylate cement was mixed and injected into the canal. The permanent component was brought up on to the field. This is a Holman and Nephew size 12 Conquest cemented femoral component. The stem was inserted, placing this in about 20 degrees of anteversion. Excess cement was removed from around its margin. The permanent unipolar head was then applied using the 49 mm cobalt chrome head with a +[address] [address] OPERATIVE REPORT Name: SUKI FORDMARIE Room #: 434-P [facility] IN [facility]#: [id number] Admission: 08/27/20 Attend Phys: Hiro Sosa MD Discharge: Date of : 37 Report #: [id number] neck length sleeve. This was impacted on the Santos taper. The hip was reduced. Alignment, range of motion, stability and leg lengths were assessed and felt to be satisfactory. The capsule was repaired along with the short external rotators using #1 Tevdek sutures back to small drill holes in greater trochanter, this added nicely to overall hip stability. A single Hemovac was left in the wound exiting through a separate stab incision. The fascia was closed with multiple #1 Vicryl sutures. Subcutaneous tissues were closed with 0 Monocryl. Skin was closed with skin naomi. A sterile dressing was applied. The patient was awakened and returned to recovery room in good condition. <ELECTRONICALLY SIGNED> By: Aakash Vigil MD 08/30/20 0821 1007 1243 Aakash Vigil MD /nt
[2020-08-30 09:01] VITALS: BP 123/57
[2020-08-30 09:15] VITALS: BP 123/57
--- NOTE | 2020-08-30 09:52 | NUR ---
ASSUMED CARE AT 0700. A&O X 4. PT DENIES PAIN, N/V. PT USES BEDSIDE COMMODE WITH 1 ASSIST WITH GAIT BELT. PT WILL WALK AROUND IN ROOM WITH NURSE. DRESSING IS DRY AND INTACT. FALL PRECAUTION. CALL LIGHT WITHIN REACH. SKIN IS INTACT WITH SKIN TEARS. PT HAS A BIGGER BRUISE ON THE LEFT FOREARM. PT DENIES ANY PAIN OR DISCOMFORT. PT IS TOLERATING REGULAR DIET. I HAVE HOLD LISINOPRIL THIS AM BLOOD PRESSURE WAS 123/57. WILL CONTINUE TO MONITOR.
[2020-08-30] MEDS ORDERED: NORCO 10-325 T1 EACH PO (12:32)
[2020-08-30] MEDS ORDERED: XARELTO10 MG PO (12:32)
[2020-08-30 13:57] VITALS: BP 114/53
--- NOTE | 2020-08-30 14:28 | NUR ---
ON-GOING ASSESSMENT: CM REVIEWED CHART AND SPOKE WITH [facility] WHO REPORTS THEY CAN ACCEPT PT TODAY. CM NOTIFIED ATTENDING. CM SPOKE WITH PT WHO IS AGREEABLE. CM ALSO SPOKE WITH PTS SON TO NOTIFY HIM. PLANS ARE TO DISCHARE TO [facility] LATER TODAY. CASE CLOSED.
== END 2020-08-30 17:22 | DRG 521 ==
LOC: ER 18:52 → 4S 21:50 → EROBS 21:50 → 4S 23:24
PROVIDERS: Emergency Medicine; Nurse Practitioner Family; Orthopaedic Surgery; ADMIT Hospitalist; ATTEND Hospitalist
PROC: 0SRR019 Replacement of Right Hip Joint, Femoral Surface with Metal Synthetic Substitute, Cemented, Open Approach (ICD-10-PCS; principal; 2020-08-29)
DX: S72.091A Other fracture of head and neck of right femur, initial encounter for closed fracture (principal); J96.90 Respiratory failure, unspecified, unspecified whether with hypoxia or hypercapnia; I10 Essential (primary) hypertension; E78.5 Hyperlipidemia, unspecified; L71.9 Rosacea, unspecified; Z83.42 Family history of familial hypercholesterolemia; E78.00 Pure hypercholesterolemia, unspecified; W18.39XA Other fall on same level, initial encounter; D64.9 Anemia, unspecified; Z20.828 Contact with and (suspected) exposure to other viral communicable diseases; Z90.710 Acquired absence of both cervix and uterus; Z88.6 Allergy status to analgesic agent; Z88.8 Allergy status to other drugs, medicaments and biological substances; Z79.82 Long term (current) use of aspirin; Z79.899 Other long term (current) drug therapy; Z82.49 Family history of ischemic heart disease and other diseases of the circulatory system; Z82.0 Family history of epilepsy and other diseases of the nervous system; Y93.89 Activity, other specified; Y92.89 Other specified places as the place of occurrence of the external cause; Y99.8 Other external cause status
CPT/HCPCS: 10195; 50010; 50101; 50382; 50414; 51057; 51130; 51225; 51412; 53000; 56521; 56525; 56530; 57165; 62110; 62900; 70005

== ENCOUNTER 2020-08-30 13:06 | Inpatient (IN) | payer OTHER, MEDICARE ==
[~2020-08-30] VITALS: Ht 172.7 cm; Wt 75.5 kg
--- NOTE | ~2020-08-30 | HC ---
[facility] [place] [address] CONSULTATION Name: FRANCA FORD Room #: 509-P ADM IN M.R.#: [id number] Admission: 08/30/20 Attend Phys: Aakash Miramontes MD Discharge: Date of : 37 Report #: [id number] THIS REPORT FOR: cc: Helene Bazan DNP, Mary E. DNP Deutch, Neal B. PhD ~ DATE OF SERVICE: 09/03/2020 AGE: 85. ATTENDING PHYSICIAN: Aakash Miramontes MD SOAP GRINDER: Justice Queen, PhD CLINICAL PRESENTATION: The patient is an 85-year-old female admitted to the rehabilitation unit at [facility] after a fall at her home in which she sustained a right proximal femur fracture. She underwent a right hip hemiarthroplasty on 08/29/2020. She is reported to have had a postoperative respiratory failure that required 3 liters of nasal cannula. PAST MEDICAL HISTORY: Includes a left breast abscess, hepatitis, hemorrhoidectomy, hysterectomy, left breast biopsy, history of elevated blood pressure and high cholesterol. Her assessment on admission to the rehabilitation unit is a right femoral neck fracture, status post hemiarthroplasty on 08/29/2020; mild postoperative respiratory failure; postoperative anemia; right thumb pain; hypertension and hyperlipidemia. A complete description of her medical condition and history along with medications can be found in her medical record. Neuropsychological consultation was requested to provide assistance in the assessment of cognitive and emotional status and provide recommendations and services. Prior to this most recent admission, she reported to have been living independently in her own home. The patient had 3 children. One child at age 40 in 2002. Her in 2013. One son is living. She had another child at . She is a high school graduate. She reports having a very active lifestyle prior to this fall. 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 There was no history of treatment for mood or behavior disorder. TECHNIQUES UTILIZED: Clinical interview, review of medical records, staff consultation and behavioral observation, mini mental status exam 2 standard version and clock drawing. [address] [address] CONSULTATION Name: RFANCA FORD Room #: 509-P [facility] IN M.R.#: [id number] Admission: 08/30/20 Attend Phys: Aakash Miramontes MD Discharge: Date of : 37 Report #: [id number] EXAMINATION FINDINGS: The patient was alert and cooperative with the assessment. She accurately described events surrounding her admission. There is no evidence of aphasia. Her thoughts are logical and goal oriented. There is no evidence of thought disorder. She does not report auditory or visual hallucinations. She describes her symptoms as primarily concerned with anxiety Sleep, appetite and energy level and cognition are reported within normal limits. Her performance on the MMSE 2 brief version is within normal limits with a raw score of 15/16. She was 3/3 for initial registration, 5/5 for orientation to time and place and 2/3 for immediate recall of 3 items after a brief time delay and distraction. Performance on the MMSE 2 standard version is within normal limits with a raw score of 28/30. She was 5/5 for serial sevens, 2/2 for naming, 1/1 for repetition, 3/3 for auditory comprehension. She could read and follow single command and write a sentence. Subtle difficulty with visual spatial construction is noted. Clock drawings within normal limits. The patient's cognition appears satisfactory. Her main concern is most likely related to anxiety. DIAGNOSTIC IMPRESSION: Adjustment disorder with anxious mood. RECOMMENDATIONS: The patient will benefit from the use of relaxation strategies to assist in her overall management of her condition and in adjustment. I reviewed a relaxation technique with her during my interview for which she had a good response. She does become overwhelmed with multiple instructions and provided just one direction at a time with intermixing same directions for a deep breath and exhale slowly will be a good approach to helping her manage anxiety. Thank you very much for allowing me to provide the consultation on this patient. By: 1017 1057 Justice Queen, PhD /nt
[~2020-08-30 13:06] MED LIST changes: +CLORAZEPATE D3.75 M1 PO; +NORCO 10-325 T1 EACH PO; +XARELTO10 MG PO
--- NOTE | 2020-08-30 19:46 | NUR ---
[age] YEAR OLD FEMALE ADMITTED TO ROOM 506 AT 1730. PT WAS A TRANSFER FROM [facility]. VSS, HEMOVAC TO RIGHT HIP IN PLACE. PT DENIES ANY PAIN AT THIS TIME. ORDERS SENT TO PHARM.
[2020-08-30 20:00] VITALS: BP 116/61
--- NOTE | 2020-08-31 04:19 | NUR ---
Assumed care of patient this pm shift. Patient alert and oriented x3. Patient takes pm medications orally with thin fluids. Patient has pain in her hip and uses an ice bag when pain is low on the scale. Patient was changed from 506 to 509 due to a malfunction in the lights. Patient does not appear to be in any acute distress. Vital signs stable. Patient ambulates via walker. Patient sleeping through most of the night. We will continue to monitor per hospital policy.
[2020-08-31 05:37] LABS: HEMATOCRIT 32.3 % (37.0-47.0); HEMOGLOBIN 10.9 gm/dL (12.0-15.0); MCH 31.2 pg (26.0-34.0); MCHC 33.9 g/dL (28.0-37.0); MCV 92.2 fL (80.0-100.0); RBC 3.5 mil/uL (4.20-5.00); RDW 13.3 % (10.5-14.5); WBC 10.4 thou/uL (4.0-11.0)
[2020-08-31 08:00] VITALS: BP 153/76
[2020-08-31 09:54] LABS: CALCIUM 8.5 mg/dL (8.5-10.1); CREATININE 0.7 mg/dL (0.6-1.0); POTASSIUM 3.5 mmol/L (3.5-5.1)
--- NOTE | 2020-08-31 10:00 | NUR ---
chart review. she up working with ot in the room. unable to visit at this time. noted per chart she lives alone, house, 3 steps to enter then no stairs inside she have to do. granddaughter noted for her dpoa. cm tried calling pt room, no answer.
--- NOTE | 2020-08-31 12:47 | NUR ---
Nutrition: Assessed due to consult recieved related to "poor appetite and healing incision". Pt admit to rehab unit S/P hip fracture with surgical intervention. Has had weight decline of reported 20# since january. 178# to 158#. Current weight 166# per bedscale. Appetite is and has been good, eating 95% of meals so far recently per documentation. Pt voices no idea why she lost weight. Eats 3 meals a day and cooks for self. Thinks possibly related to nerves. Follow for positive upward trends. Aware of options to order meals and refuses supplements. Adequate po including protein encouraged for wound healing. Low nutrition risk due to no new interventions.
--- NOTE | 2020-08-31 14:25 | NUR ---
ASSUMED CARES AT 0700. PT AWAKE, ALERT AND ORIENTED*4. DENIES PAIN AT THIS TIME. VITALS REMAIN STABLE. RIGHT HIP CHRISTIAN DRESSING REMAINS DRY AND INTACT. HEMOVAC DC'D PER PHYSICIAN'S ORDER. LEFT WRIST IV DC'D. SKIN TEARS IN LEFT ARM CLEANED AND DRESSINGS CHANGED, PICTURES TAKEN. CONTINUES TO HAVE BRUISING ON RIGHT THUMB, ARMS AND BLE. PT UP WITH 1 MIN ASSIST, GB AND WALKER. AMBULATED WITH PT AND TOLERATED WELL. Q1H VISUAL CHECKS. CALL LIGHT WITHIN REACH. FALL PRECAUTIONS IN PLACE
[2020-08-31 18:35] LABS: FOLIC ACID 19.7 ng/mL (8.6-58.9); TSH 0.409 uIU/mL (0.358-3.740)
[2020-08-31 19:25] VITALS: BP 109/53
--- NOTE | 2020-09-01 06:58 | NUR ---
pATIENT IS ALERT AND ORIENTED X 4 AND VERY PLEASNT. sHE IS COMPLIANT WITH ALL HER MEDICATIONS AND IS A LITTLE WORRIED ABOUT NOT HAVING ANY BOWEL MOVMENT SINCE THE . pATIENT HAS BEEN EDUCATED ON ACCEPTING AND TAKING ALL STOOL SOFTNERS ADMINISTERED WELL DRINKING ENOUGH FLUIDS. SHE IS UP X1 ASSIST WIT GAIT BELT AND WALKER.
[2020-09-01 08:30] VITALS: BP 122/61
--- NOTE | 2020-09-01 09:39 | NUR ---
PT SITTING IN RECLINER. PT STATED NO PAIN AT THIS TIME. PT DID STATE THAT SHE GETS MUSCLE SPASMS TO RT LEG. PT IS WBAT. PT DRESSING INTACT TO RT HIP WITH CHRISTIAN. INVASIVE CARDIOVASCULAR TECHNOLOGIST HERE FROM SURGERY TO ASSESS HER AND CHECK DRESSING. PT STATED NO BM SINCE 08/27. PT HAS BEEN DRINKING PRUNE JUICE WITH BREAKFAST AND ON MIRALAX AND COLACE. PT STATED THAT METAMUCIL WORKS BETTER FOR HER WITHOUT URGENCY. PT HAS MELVIN HOSE IN PLACE AND CALL LIGHT IN REACH. GAVE PT FRESH WATER. PT HAS FOAM BOARDER DRESSING TO BELOW RT THUMB AND RT ELBOW.
--- NOTE | 2020-09-01 15:34 | NUR ---
PT TOOK MEDS THIS AFTERNOON WITH MAGIC CUP ICE CREAM AND HONEY THICKEN LIQUIDS. PT STATED IT WAS TOO THICK, ADDED SMALL AMT OF WATER. PT TOLERATED WELL. ASSISTED PT HELP ROLL TO LEFT SIDE.
--- NOTE | 2020-09-01 15:39 | NUR ---
PT HAS BEEN WORKING WITH THERAPY TODAY. PT HAS NOT ASKED FOR PAIN MEDICATION, OR MUSCLE RELAXER. APPLIED FOAM DRESSING TO RT WRIST AND ALSO RT ELBOW. PT SKIN TEARS ARE HEALING AND NO SIGNS OF REDDNESS.
--- NOTE | 2020-09-01 17:59 | NUR ---
PT STATED SHE IS STARTING TO HAVE MUSCLE SPASMS TO HER RT LEG. REQUESTING MUSCLE RELAXER.
--- NOTE | 2020-09-01 18:12 | NUR ---
ADM ZANAFLEX 2MG PO FOR COMPLAINS OF SPASM OF GROIN TO RT SIDE AND DOWN LEG. PT REFUSED PAIN MED AT THIS TIME. PT STATED SHE IS PASSING GAS, STILL NO STOOL.
[2020-09-01 19:32] VITALS: BP 137/60
[2020-09-01 19:37] VITALS: BP 125/57
--- NOTE | 2020-09-02 04:53 | NUR ---
Assumed care of pt @ 1900. Pt AOX3 with VSWNL. Ambulates with assistance of walker, stand by assist with gait belt. Drsg to R hip dry et intact. Took medications whole without difficulty. LBM 09/01/20. Health assessment with no abnormalities other than previously noted. Pt was given Hydrocodone/APAP @ 1945 for pain 04/13. Pt was sleeping upon reassessment. Currently resting in bed with eyes closed. Will continue to monitor per unit protocol.
[2020-09-02 08:00] VITALS: BP 147/63
--- NOTE | 2020-09-02 10:58 | NUR ---
ASSUMED CARE AT 0700. PT HAD AN UNEVENTFUL NIGHT AND SLEPT FAIRLY WELL. PT IS ALERT AND ORIENTATED AND DENIES ANY PAIN THIS MORNING. HER LAST PAIN MED WAS LAST NIGHT AT 1945. PT WAS GIVEN SCHEDULED TYLENOL. PT IS UP WITH ASSIST TO THE BATHROOM AND HAD A SMALL BM TODAY. APPETITE GOOD. PARTICIPATING WITH THERAPY. R HIP DRESSING INTACT WITH CHRISTIAN DRESSING. MODERATE AMOUNT OF OLD DRAINAGE. CONT TO MONITOR.
[2020-09-02 20:15] VITALS: BP 150/68
--- NOTE | 2020-09-02 23:19 | NUR ---
PT ALERT AND ORIENTED X 4. AMB TO BR WITH WALKER AND ASSIST X 1 WITHOUT DIFFICULTY. RIGHT HIP CHRISTIAN DRESSING INTACT WITH DRIED BLOODY DRAINAGE. PT DENIES PAIN OR DISCOMFORT. SCHEDULED TYLENOL GIVEN AT HS. BED ALARM ON FOR SAFETY. PT APPEARS TO BE SLEEPING ON HOURLY ROUNDS.
[2020-09-03 07:12] VITALS: BP 152/77
[2020-09-03 12:11] LABS: HEMATOCRIT 31.8 % (37.0-47.0); HEMOGLOBIN 10.6 gm/dL (12.0-15.0); MCHC 33.4 g/dL (28.0-37.0); MCV 92.9 fL (80.0-100.0); PLATELET COUNT 261 thou/uL (150-400); RBC 3.42 mil/uL (4.20-5.00); RDW 13.3 % (10.5-14.5)
[2020-09-03 12:26] LABS: ALBUMIN 2.6 g/dL (3.4-5.0); CALCIUM 8.4 mg/dL (8.5-10.1); CREATININE 0.8 mg/dL (0.6-1.0); MAGNESIUM 1.7 mg/dL (1.8-2.4); POTASSIUM 4.3 mmol/L (3.5-5.1); TOTAL BILIRUBIN 0.9 mg/dL (0.2-1.0)
[2020-09-03 12:35] LABS: ABSOLUTE NEUTROPHILS 7.4 thou/uL (1.4-8.2); PLATELET ESTIMATE NORMAL
--- NOTE | 2020-09-03 12:57 | NUR ---
ASSUMED CARE AT 0700. PT HAD AN UNEVENTFUL NIGHT AND SLEPT FAIRLY WELL. GOTTEN UP COUPLE OF TIMES TO HAVE A BM. PT DENIES ANY PAIN AND IS COMFORTABLE RESTING. REFUSED ANY LAXATIVE TODAY. COMPLAINED OF SOME NASAL BLEED AND DR COOK ORDERED SOME NASAL GEL IN HER NOSTRILS. PARTICIPATING IN THERAPY. PROGRESSING TOWARDS GOAL. DRESSING TO RIGHT HIP INTACT WITH CHRISTIAN DRESSING INTACT. WILL CONT TO MONITOR.
[2020-09-03 19:35] VITALS: BP 146/64
--- NOTE | 2020-09-04 00:28 | NUR ---
PT ALERT AND ORIENTED X 4. AMB TO BR WITH WALKER AND ASSIST X 1 WITHOUT DIFFICULTY. RIGHT HIP CHRISTIAN DRESSING INTACT WITH OLD BLOODY DRAINAGE. PT DENIES PAIN OR DISCOMFORT. BED ALARM ON FOR SAFETY. PT CHECKED ON HOURLY ROUNDS.
[2020-09-04 07:00] VITALS: BP 150/79
[2020-09-04 09:30] VITALS: BP 131/68
--- NOTE | 2020-09-04 12:54 | NUR ---
ASSUMED CARE OF PT AT 0700. PT IS A&OX4 AND VITAL SIGNS ARE STABLE. PT REPORTS PAIN TO BACK AND RIGHT HIP, MANAGED WITH SCHEDULED PAIN MEDICATIONS. CHRISTIAN DRESSING TO RIGHT HIP INTACT, DRAINAGE TO THE DRESSING NOTED. AMBULATED 150 FT WITH GAIT BELT AND WALKER THIS SHIFT. FALL PRECAUTIONS IN PLACE AND NURSING WILL CONTINUE TO MONITOR.
[2020-09-04 20:19] VITALS: BP 139/53
--- NOTE | 2020-09-05 00:40 | NUR ---
PT AOX4. NOTED TO BE HARD OF HEARING. PT DENIES PAIN, REPORTS 7/10 DISCOMFORT DUE TO REPORTS OF MUSCLE SPASMS IN BOTH HANDS AND BLE. PT TAKING PRN PO METHOCARBAMOL Q8HR. PT HAS PRN PO NORCO Q4HR AVAILABLE, RELUCTANT TO TAKE. PT RECEIVING SCHEDULED APAP. PT NOTED TO HAVE SOB WITH EXERTION, REMAINS ON ROOM AIR. PT TOLERATING PO INTAKE OF THIN FLUIDS WITHOUT ISSUE. PT TAKES MEDICATIONS WHOLE, ONE AT A TIME. PT AMBULATING IN ROOM TO BATHROOM WITH STANDBY ASSIST AND WALKER. FREQUENT REPOSITIONING ENCOURAGED. PT REPORTS HAVING INDEPENDENCE WITH SHIFTING IN BED, ACCEPTING OF REPOSITIONING ASSISTANCE. PT ENCOURAGED TO NOTIFY STAFF FOR ALL NEEDS. CALL LIGHT WITHIN REACH, BED ALARM ON, BED IN LOWEST POSITION, FREQUENT MONITORING WILL CONTINUE.
[2020-09-05 06:13] LABS: HEMATOCRIT 32.3 % (37.0-47.0); HEMOGLOBIN 10.8 gm/dL (12.0-15.0); MCH 30.7 pg (26.0-34.0); MCHC 33.6 g/dL (28.0-37.0); MCV 91.5 fL (80.0-100.0); PLATELET COUNT 289 thou/uL (150-400); RBC 3.53 mil/uL (4.20-5.00); RDW 13.2 % (10.5-14.5); WBC 7.8 thou/uL (4.0-11.0)
[2020-09-05 06:23] LABS: CALCIUM 8.6 mg/dL (8.5-10.1); CREATININE 0.8 mg/dL (0.6-1.0); MAGNESIUM 1.7 mg/dL (1.8-2.4); POTASSIUM 3.6 mmol/L (3.5-5.1)
[2020-09-05 07:00] VITALS: BP 153/75
[2020-09-05 07:59] LABS: ANISOCYTOSIS SLIGHT
--- NOTE | 2020-09-05 10:05 | NUR ---
ASSUMED CARE AT 0700. PATIENT IS ALERT AND ORIENTEDX4. PATIENT KELLY'S, SUPERVISOR WATER SOFTENER SERVICE ARE EQUAL. LUNGS ARE CLEAR. ABD IS SOFT WITH BSX4. PATIENT HAS CHRISTIAN TO RIGHT HIP. LASHONDA ARE DRY AND INTACT. UP TO THE BATHROOM WITH ASSIST OF 1 STAFF AND GAIT BELT, AND WALKER TO VOID NATE COLORED URINE. UP IN THE CHAIR FOR BREAKFAST. FALL AND SAFETY PROTOCOLS IN PLACE. TAKES SCED PRN PAIN MED FOR RIGHT HIP PAIN. WILL CONTINUE TO MONITER.
--- NOTE | 2020-09-05 15:28 | NUR ---
received voice message from son eladia [phone] and granddaughter, letting team know that eladia is the primary contact for updates and dcp. will cont following as needed for dc needs.
--- NOTE | 2020-09-05 18:21 | NUR ---
PATIENT GOOD APPETITE. PLEASANT AND AGREEABLE. WORKED WITH OT - STATED NO PAIN DISCOMFORT TODAY. ABLE TO MANUVER WITH WALKER. COMPLIANT WITH MEDICAIONS. SELF CARE FEEDING AND WITH MEALS.
[2020-09-05 20:00] VITALS: BP 151/63
--- NOTE | 2020-09-05 23:45 | NUR ---
PATIENT SAT UP IN RECLINER FOR AWHILE TONIGHT. PATIENT IS A/0X4 AND PLEASANT AND COOPERATIVE. PATIENT TAKES HER MEDS WHOLE WITH WATER. SHE HAS SCHEDULED ES TYLENOL FOR LEG SPASMS R/T RESTLESS LEGS WHICH SEEMS TO GIVE HER SOME RELIEF. PATIENT STATES HER RIGHT HIP DOES NOT HURT. PATIENT IS VERY INDEPENDENT WITH CARES AND IS STANDBY ASSIST WITH WALKER AND GAIT BELT ON TRANSFERS. PATIENT HAS A CHRISTIAN MACHINE IN PLACE AND DRESSING IS INTACT ON RIGHT FEMUR/HIP AREA. PATIENT HAS NOT HAD ANY NOSE BLEEDS TONIGHT. BED IN LOW POSITION AND ALARM ON.
[2020-09-06 08:00] VITALS: BP 134/64
--- NOTE | 2020-09-06 08:07 | NUR ---
ASSUMED CARE AT 0700. PATIENT IS ALERT AND ORIENTED X4. PATIENT KELLY'S, SUBSTANCE ABUSE TECHNICIAN ARE EQUAL. LUNGS ARE CLEAR. ABD IS SOFT WITH BSX4. C/O RESTLESS LEG SYNDROME. CHRISTIAN DRESSING IS DRY AND INTACT OVER LASHONDA TO HER RIGHT HIP FALL AND SAFETY PROTOCOLS IN PLACE. C/O RIGHT HIP PAIN. MEDICATED WITH SCED PAIN MED. UP WITH ASSIST OF 1 TO BATHROOM TO VOID NATE COLORED URINE. CONTINUES TO PROGRESS TOWARDS D/C GOALS. WILL CONTINUE TO MONITER.
--- NOTE | 2020-09-06 12:37 | NUR ---
team meeting, reccommendation: dc 6th, home health ( nursing, pt, ot, ), fww. mod i on in room with fww.
--- NOTE | 2020-09-06 16:52 | NUR ---
FAXED REFERRAL TO [facility] ([place], [place]) RECEIVED CONFIRMATION AND SPOKE WITH TREASURE IN INTAKE SHE WILL REVIEW AND F/U WITH ME IN THE AM. PT TO DC ON 09/09
[2020-09-06 19:05] VITALS: BP 110/47
--- NOTE | 2020-09-06 23:59 | NUR ---
PT ALERT AND ORIENTED X 4. UP IN RECLINER ALL EVENING. TRANSFERRED TO BED AT HS WITH ASSIST X 1. RIGHT HIP DRESSING C/D/I. PT DENIES PAIN OR DISCOMFORT. TAKES SCHEDULED TYLENOL AT HS. BED ALARM ON FOR SAFETY. PT APPEARS TO BE SLEEPING ON HOURLY ROUNDS.
[2020-09-07 08:00] VITALS: BP 142/75
--- NOTE | 2020-09-07 12:28 | NUR ---
Nutrition followup: Pt continues to eat very well, 75-100% of meals on regular diet. No new weight to assess. Prior loss reported despite good appetite. BM today. On MVI, vitamin D, folic acid supplementation. Pt voices no nutrition related concerns. Would suggest a standing scale weight if possible. Plan D/C 09/09. Low nutrition risk.
--- NOTE | 2020-09-07 14:49 | NUR ---
ASSUMED CARES AT 0700. PT AWAKE, ALERT AND ORIENTED*4. DENIES PAIN, C/O MILD MUSCLE SPASMS WITH ACTIVITY, ACETAMINOPHEN ADMINISTERED ORDERED. VITALS REMAIN STABLE. LEFT HIP INCISION REMAINS DRY AND INTACT, WBAT. PT DENIES NOSE BLEEDS TODAY. UP WITH 1 MIN -SBA GB AND WALKER AND TOLERATED WELL. Q1H VISUAL CHECKS. CALL LIGHT WITHIN REACH. FALL PRECAUTIONS IN PLACE
[2020-09-07 19:25] VITALS: BP 138/64
--- NOTE | 2020-09-08 01:50 | NUR ---
PATIENT UP WITH STANDBY ASSIST, ADVANCED TO MODIFIED INDEPENDENT IN ROOM TODAY. AWARE THAT AFRIN NOSE SPRAY IS EFFECTIVE FOR NOSEBLEEDS AND WILL KEEP MORGAN WHILE ON XARELTO BLOOD THINNER THE NEXT FEW WEEKS. PLEASANT
[2020-09-08 06:01] LABS: HEMOGLOBIN 10.5 gm/dL (12.0-15.0); MCH 31.3 pg (26.0-34.0); MCHC 33.9 g/dL (28.0-37.0); MCV 92.4 fL (80.0-100.0); PLATELET COUNT 326 thou/uL (150-400); RBC 3.36 mil/uL (4.20-5.00); RDW 13.3 % (10.5-14.5); WBC 6.4 thou/uL (4.0-11.0)
[2020-09-08 06:13] LABS: CALCIUM 9.4 mg/dL (8.5-10.1); CREATININE 0.7 mg/dL (0.6-1.0); MAGNESIUM 1.7 mg/dL (1.8-2.4); POTASSIUM 3.8 mmol/L (3.5-5.1)
[2020-09-08 08:00] VITALS: BP 139/66
[2020-09-08 08:15] LABS: ABSOLUTE NEUTROPHILS 3.3 thou/uL (1.4-8.2)
[2020-09-08 08:16] LABS: ANISOCYTOSIS SLIGHT
--- NOTE | 2020-09-08 11:58 | NUR ---
ASSUMED CARE AT 0700. PT HAD AN UNEVENTFUL NIGHT AND SLEPT FAIRLY WELL UNTIL 3AM. SHE COULD NOT GO BACK TO SLEEP SINCE. DENIES ANY PAIN OR DISCOMFORT. ALERT AND ORIENTATED. SHE IS SCHEDULED TO BE DC HOME TOMORROW. MOD I IN THE ROOM. SPOKE TO JONAS MURDOCK, TO KEEP LASHONDA TO R HIP FOR ANOTHER WEEK (TOTAL OF 21 DAYS POST SURGERY). CHRISTIAN DRESSING REMOVED AND INCISION COVERED WITH [place] BANDAGE. PARTICIPATING WITH THERAPY. PROGRESSING WELL TOWARDS GOAL. CONT TO MONITOR.
[2020-09-08] MEDS ORDERED: TYLENOL EXTRA500 MG PO (13:14)
[2020-09-08] MEDS ORDERED: XARELTO10 MG PO (13:14)
[2020-09-08] MEDS ORDERED: ROBAXIN 750 MG750 MG PO (13:14)
[2020-09-08 19:51] VITALS: BP 136/68
--- NOTE | 2020-09-09 03:06 | NUR ---
09-08-20 CARE TRANSFERRED 1899. 1949 PT AAOX4, VSS, RR EVEN AND NONLABORED ON RA. PT DENIES ANY PAIN. PT DRESSING ON RIGHT HIP, CLEAN, DRY AND INTACT. EDEMA NOTED ON RIGHT LEG NON-PITTING. DURING MEDICATION ADMIN PT HAD NO DIFFICULTIES. LATER PT DEMONSTRATED TAKING SOCKS OFF WITH GRABBER, PT REPORTED I AM STARTING TO LIKE THE GRABBER. ZERO S/S OF ACUTE DISTRESS NOTED, WILL CONTINUE TO MONITOR PT PER 5NR PROTOCOL.
[2020-09-09 08:00] VITALS: BP 154/66
[2020-09-09 09:35] VITALS: BP 154/66
--- NOTE | 2020-09-09 10:29 | H ---
[facility] [place] [address] HISTORY AND PHYSICAL Name: FRANCA FORD Room #: 509-P ADM IN M.R.#: [id number] Admission: 08/30/20 Attend Phys: Aakash Miramontes MD Discharge: Date of : 37 Report #: [id number] THIS REPORT FOR: cc: Helene Bazan DNP, Mary E. DNP Smithson, David G. MD ~ CC: Aakash Bazan DATE OF SERVICE: 08/30/2020 HISTORY OF PRESENT ILLNESS: This is an 85-year-old female who was originally admitted to [facility] on 08/27/2020 after a fall at home with right hip pain. She was found to have a right proximal femur fracture, underwent right hip hemiarthroplasty on 08/29/2020. She is allowed weightbearing as tolerated. She had some postoperative respiratory failure, requiring 3 liters nasal cannula. She has some right thumb discomfort with some bruising. X-rays was obtained of that right thumb. There was thought to possibly be a hairline fracture versus a prominent vascular channel, distal phalangeal tuft of the thumb and she does have severe osteoarthritis. Wrist x-rays were negative. She does have severe first carpometacarpal joint arthritis. She has been admitted for acute in-hospital inpatient rehabilitation. PAST MEDICAL HISTORY: Prior medical history includes left breast abscess in 8, hepatitis hemorrhoidectomy, hysterectomy, left breast biopsy in 1995, history of blood pressure, which is elevated and high cholesterol. HABITS: No history of tobacco or alcohol abuse. MEDICATIONS: Please see the full medication listing. ALLERGIES: CODEINE, HAYFEVER AND CITALOPRAM. SOCIAL HISTORY: The patient lives alone in a house with 4 steps in. She has 2 handrails. She was premorbidly independent with ADLs and IADLs. She is right-handed, driving, does not use any assistive device. She has a supportive son and granddaughter. REVIEW OF SYSTEMS: No current complaints of chest pain, shortness of breath, or abdominal discomfort. She was noted to have a vaginal infection and is on Flagyl. She has some questions regarding her thyroid status and a TSH was ordered. The hospitalist service will further assist as well. PHYSICAL EXAMINATION: GENERAL: She is an 85-year-old white female, in no obvious distress. She is [address] [address] HISTORY AND PHYSICAL Name: FRANCA FORD Room #: 509-P [facility] IN M.R.#: [id number] Admission: 08/30/20 Attend Phys: Aakash Miramontes MD Discharge: Date of : 37 Report #: [id number] alert. VITAL SIGNS: Last recorded temperature 98.2, pulse 86, respirations 16, and blood pressure 116/61. HEENT: Appeared to be benign. NEUROLOGIC: Cranial nerves are grossly intact. Facies are symmetric. She has functional range of motion of the upper extremities. She does have decreased at end range with significant degenerative arthritic changes. CHEST: Sounded clear to auscultation. CARDIOVASCULAR: Regular rate and rhythm. ABDOMEN: Bowel sounds positive, nontender. GENITOURINARY AND RECTAL: Deferred. EXTREMITIES: Right hip is dressed. She has the drain in place. There is no focal calf swelling. She can dorsiflex the right ankle. Right lower extremity strength is probably a grade 3+/5. Left lower extremity, no focal calf swelling, functional range of motion, strength is probably a grade 4-/5. Functionally, she has been ambulating a short distance with a front-wheeled walker. ASSESSMENT: An 85-year-old white female with the following problem list: 1. Right femoral neck fracture, status post hemiarthroplasty on 08/29/2020. 2. Mild postoperative respiratory failure. 3. Postoperative anemia. 4. Right thumb pain. 5. Hypertension. 6. Hyperlipidemia. PLAN: The patient has been admitted for acute in-hospital inpatient rehabilitation. Goal will be for the patient to maximize her functional independence, so she can hopefully return back to the home setting. She will be involved in the interdisciplinary acute rehab program. Goals would be for her to be modified independent at the walker level with mobility and ADLs. Potential barriers would include her above noted medical comorbidities and decreased functional status. The patient meets diagnostic criteria for an acute in-hospital inpatient rehabilitation stay. She meets the medical necessity criteria and we will have the bath design sales consultant physicians continue to follow. She does have the tolerance for therapies and has appropriate discharge goals back to the home setting. <ELECTRONICALLY SIGNED> By: Aakash Miramontes MD 09/09/20 1029 [id number] Aakash Miramontes MD /nt
--- NOTE | 2020-09-09 10:29 | PLAN ---
[facility] [place] [address] REHAB UNIT PLAN OF CARE Name: FRANCA FORD Room #: 509-P ADM IN M.R.#: [id number] Admission: 08/30/20 Attend Phys: Aakash Miramontes MD Discharge: Date of : 37 Report #: [id number] THIS REPORT FOR: //name// CC: Aakash Bazan DATE OF SERVICE: 09/02/2020 PROGRESS NOTE/OVERALL PLAN OF CARE SUBJECTIVE: The patient has been seen earlier, was in no distress. Temperature 36.3, pulse 81, respirations 20, blood pressure 147/63. She was noted to have an uneventful night. She did not have any significant pain and has been given Tylenol. She has been participating with therapies. With physical therapy with contact guard for transfers, gait 10 feet front-wheeled walker, standby assistance and has ambulated up to 150 feet front-wheeled walker. In occupational therapy, lower body dressing is min assist. ASSESSMENT: An 85-year-old white female with the following problem list: 1. Right femoral neck fracture, status post hemiarthroplasty on 08/29/2020. 2. Mild postoperative respiratory failure. 3. Postoperative anemia. 4. Right thumb pain. 5. Hypertension. 6. Hyperlipidemia. PLAN: The overall plan of care includes the followin. Estimated length of stay is probably going to be 7-14 days. 2. Medical prognosis is reasonably good. 3. Anticipated interventions includes the interdisciplinary acute inpatient rehabilitation program. 4. Anticipated functional outcomes would be for the patient to become modified independent with transfers, mobility, ADLs, so that she can hopefully return back to her prior living situation. 5. Discharge destination would be back where she lives in a house alone. She does have involved family. 6. Expected therapy by discipline includes PT and OT 1-1/2 hours per day each five days a week throughout the duration of the acute inpatient rehabilitation stay. The patient's prognosis for significant practical improvement within a reasonable period of time appears good. Given her medical condition and risk of further medical complications in rehabilitation services cannot be safely provided at a lower level of care such as a half-way facility. She meets the medical necessity criteria. The tolerance criteria, has appropriate [address] [address] REHAB UNIT PLAN OF CARE Name: FRANCA FORD Room #: 509-P ADM IN [facility].#: [id number] Admission: 08/30/20 Attend Phys: Aakash Miramontes MD Discharge: Date of : 37 Report #: [id number] discharge goals back to the home setting and meets the diagnostic criteria for an acute in-hospital inpatient rehabilitation stay. <ELECTRONICALLY SIGNED> By: Aakash Miramontes MD 09/09/20 1029 1214 [id number] Aakash Miramontes MD /nt
[2020-09-09 11:09] VITALS: BP 154/66
--- NOTE | 2020-09-09 15:45 | NUR ---
PT REQUESTED DRESSING TO RIGHT HIP BE REINFORCED AFTER MD TO ROOM AND REMOVED BY DOCTOR TO ALLOW FOR ASSESSMENT. NEW DRESSING APPLIED AND REVIEWED HOME CARE DRESSING INSTRUCTIONS I.E KEEPING DRY AND COVERED. PT STATES UNDERSTANDING AND DENIES QUESTIONS/CONCERNS-ROLLER WALKER DELIVERED AND DC INSTRUCTIONS/PRESCRIPTIONS,HOME MEDICATIONS SCHEDULE AND ADLS.FOLLOW UP CARE INSTRUCTIONS REVIEWED WITH PT-SHE STATES UNDERSTANDING AND DENIES QUESTIONS/CONCERNS. PERSONEL BELONGINGS LOADES VIA BEAD SUPERVISOR,PT WHEELED SELF IN WC TO ELEVATOR-UP IN MOOD DENIES COMPLAINTS AND QUESTIONS/CONCERNS AT TIME OF DC-TO HOME WITH HOME HEALTH TRANSPORTED BY FRIEND IN PRIVATE VEHICLE
--- NOTE | 2020-09-12 16:17 | NUR ---
PT DISCHARGED ON 09/09 FROM REHAB DC ORDERS/SUMMARY FAXED BUT NOT RECEIVED SO REFAXED ORDERS AND SPOKE WITH TREASURE IN INTAKE AT [facility] HH SHE RECEIVED ORDERS AND WILL ARRANGE VISITS WITH PT.
== END 2020-09-09 13:08 | disposition home health service (06) | DRG 535 ==
PROVIDERS: Internal Medicine; Nurse Practitioner; Nurse Practitioner Family; ADMIT Physical Medicine & Rehabilitation; ATTEND Physical Medicine & Rehabilitation
DX: S72.001A Fracture of unspecified part of neck of right femur, initial encounter for closed fracture (principal); J96.91 Respiratory failure, unspecified with hypoxia; W18.39XA Other fall on same level, initial encounter; D64.9 Anemia, unspecified; I10 Essential (primary) hypertension; E78.5 Hyperlipidemia, unspecified; L71.9 Rosacea, unspecified; F43.20 Adjustment disorder, unspecified; E78.00 Pure hypercholesterolemia, unspecified; G25.81 Restless legs syndrome; R04.0 Epistaxis; K59.00 Constipation, unspecified; R26.89 Other abnormalities of gait and mobility; Y93.89 Activity, other specified; Y92.89 Other specified places as the place of occurrence of the external cause; Y99.8 Other external cause status; Z90.710 Acquired absence of both cervix and uterus; Z88.8 Allergy status to other drugs, medicaments and biological substances; Z88.6 Allergy status to analgesic agent
CPT/HCPCS: 10112

== ENCOUNTER → 2021-02-14 | Outpatient (CLI) | payer OTHER, MEDICARE ==
[~2021-02-14] MED LIST changes: +ROBAXIN 750 MG750 MG PO; +TYLENOL EXTRA500 MG PO
== END ==
LOC: RAD 09:07 → BC 10:38
PROVIDERS: ATTEND Nurse Practitioner
DX: N63.21 Unspecified lump in the left breast, upper outer quadrant (principal); R92.8 Other abnormal and inconclusive findings on diagnostic imaging of breast; Z88.8 Allergy status to other drugs, medicaments and biological substances

== ENCOUNTER → 2021-08-15 | Outpatient (CLI) | payer OTHER, MEDICARE | LOC: BC 13:36 | PROVIDERS: ATTEND Nurse Practitioner | DX: N63.21 Unspecified lump in the left breast, upper outer quadrant (principal); R92.0 Mammographic microcalcification found on diagnostic imaging of breast; R92.2 Inconclusive mammogram ==

== ENCOUNTER → 2021-08-30 | Outpatient (CLI) | payer OTHER, MEDICARE ==
[2021-08-30 12:09] LABS: ABSOLUTE NEUTROPHILS 4.8 thou/uL (1.4-8.2); BASOPHILS 0.7 % (0.0-2.0); EOSINOPHILS 1.8 % (0.0-3.0); HEMATOCRIT 40.8 % (37.0-47.0); HEMOGLOBIN 13.2 gm/dL (12.0-15.0); LYMPHOCYTES 13.4 % (24.0-44.0); MCH 30.3 pg (26.0-34.0); MCHC 32.5 g/dL (28.0-37.0); MCV 93.2 fL (80.0-100.0); MONOCYTES 12.5 % (1.0-8.0); PLATELET COUNT 253 thou/uL (150-400); POLYS 71.6 % (36.0-66.0); RBC 4.37 mil/uL (4.20-5.00); RDW 13.2 % (10.5-14.5); WBC 6.6 thou/uL (4.0-11.0)
== END ==
LOC: LAB 10:57
PROVIDERS: ATTEND Nurse Practitioner
DX: S72.041A Displaced fracture of base of neck of right femur, initial encounter for closed fracture (principal); X58.XXXA Exposure to other specified factors, initial encounter; Y92.89 Other specified places as the place of occurrence of the external cause; Y93.89 Activity, other specified; Y99.8 Other external cause status

== ENCOUNTER 2021-10-22 11:40 | Inpatient (IN) | payer OTHER, MEDICARE ==
[~2021-10-22] VITALS: Ht 177.8 cm; Wt 71.7 kg
[2021-10-22 11:47] VITALS: BP 97/40
[2021-10-22 13:07] LABS: HEMATOCRIT 39.1 % (37.0-47.0); HEMOGLOBIN 12.9 gm/dL (12.0-15.0); MCV 90.8 fL (80.0-100.0); PLATELET COUNT 220 thou/uL (150-400); RBC 4.31 mil/uL (4.20-5.00); RDW 14.2 % (10.5-14.5); WBC 21.6 thou/uL (4.0-11.0)
[2021-10-22 13:15] LABS: CALCIUM 9.1 mg/dL (8.5-10.1); CREATININE 1.4 mg/dL (0.6-1.0); POTASSIUM 3.8 mmol/L (3.5-5.1)
[2021-10-22 13:25] LABS: ALBUMIN 3.4 g/dL (3.4-5.0); TOTAL BILIRUBIN 1.6 mg/dL (0.2-1.0); TOTAL PROTEIN 7.2 g/dL (6.4-8.2)
[2021-10-22 13:53] LABS: ABSOLUTE NEUTROPHILS 19.7 thou/uL (1.4-8.2)
[2021-10-22 14:44] LABS: URINE BILIRUBIN NEGATIVE (Negative); URINE BLOOD 1+ (Negative); URINE CLARITY CLEAR; URINE COLOR YELLOW; URINE GLUCOSE-RANDOM* NEGATIVE (Negative); URINE KETONES TRACE (Negative); URINE LEUKOCYTES-REFLEX TRACE (Negative); URINE NITRITE-REFLEX NEGATIVE (Negative); URINE PROTEIN (DIPSTICK) TRACE (Negative); URINE SPECIFIC GRAVITY <= 1.005 (1.005-1.035); URINE UROBILINOGEN 0.2 E.U./dl (0.2-1.0)
[2021-10-22 14:58] LABS: SQUAMOUS 0-3 Few /LPF (0-3)
[2021-10-22 14:59] LABS: BACTERIA-REFLEX 1-9 Few /HPF (None Seen); URINE RBC 1-2 Rare /HPF (NONE SEEN); URINE WBC-REFLEX 6-15 Few /HPF (0-5)
[2021-10-22 15:00] LABS: CASTS None Seen /LPF (None Seen)
[2021-10-22 15:03] LABS: CRYSTALS None Seen /LPF (None Seen)
[2021-10-22 19:03] VITALS: BP 140/62
[2021-10-22 23:36] VITALS: BP 136/79
[2021-10-23 05:10] LABS: ABSOLUTE NEUTROPHILS 12.8 thou/uL (1.4-8.2); BASOPHILS 0.4 % (0.0-2.0); EOSINOPHILS 0.1 % (0.0-3.0); HEMATOCRIT 36.5 % (37.0-47.0); HEMOGLOBIN 11.9 gm/dL (12.0-15.0); LYMPHOCYTES 4.2 % (24.0-44.0); MCH 29.7 pg (26.0-34.0); MCHC 32.7 g/dL (28.0-37.0); MONOCYTES 12.5 % (1.0-8.0); PLATELET COUNT 197 thou/uL (150-400); POLYS 82.8 % (36.0-66.0); RDW 14.1 % (10.5-14.5); WBC 15.5 thou/uL (4.0-11.0)
[2021-10-23 05:38] LABS: ALBUMIN 2.6 g/dL (3.4-5.0); CALCIUM 8.2 mg/dL (8.5-10.1); CREATININE 0.8 mg/dL (0.6-1.0); MAGNESIUM 1.2 mg/dL (1.8-2.4); POTASSIUM 3.2 mmol/L (3.5-5.1); TOTAL BILIRUBIN 1.5 mg/dL (0.2-1.0); TOTAL PROTEIN 5.9 g/dL (6.4-8.2)
--- NOTE | 2021-10-23 07:13 | EKG ---
[place] [address] [facility] [place] [address] ELECTROCARDIOGRAM REPORT Name: FRANCA FORD Room #: 170-16 ADM IN M.R.#: [id number] Admission: 10/22/21 Attend Phys: Mulugeta Prajapati MD Discharge: Date of : 37 Report #: [id number] [facility] ED Test Date: 2021-10-22 Test Time: 13:03:33 Pat Name: FRANCA FORD Department: Room: 170 Gender: F Director Of Safety And Security: : 1935 Requested By: Bhavik Cazares Order Number: [id number] MD: John Esposito Measurements Intervals [place] Rate: 79 P: 34 AK: 168 QRS: -36 QRSD: 133 T: 111 QT: 411 QTc: 472 Interpretive Statements Sinus rhythm Atrial premature complexes Left atrial enlargement Left bundle branch block Compared to ECG 08/27/2020 20:36:44 Atrial abnormality now present Electronically Signed On 10-23-2021 7:13:08 SUPERVISOR GARMENT MANUFACTURING by John Esposito [email or web address] <ELECTRONICALLY SIGNED> By: John Esposito MD, [facility] 10/23/21 0713 1303 1303 John Esposito MD, FACC /EPI
--- NOTE | 2021-10-23 11:57 | NUR ---
Case opened to follow for dc planning. Pt is currently in the ER holding for a bed. Matchbook Assembler spoke with gdmiguel angel/holly Kimbrough who is with her at bedside. The pt is lives indep in her own home. She has 3 steps to enter. She has a cane and a walker at home but normally uses the cane. She has not had any hh services since she was dc'd from acute rehab in Sep 2020 with [facility] ([facility]). She is open to using them again if needed at dc. She is motivated to work with therapy and is worried about be in bed "too much" and losing her strength. She is being treated for colitis. She is covid neg. PT/OT evals are pending. Pt's gdtr notes that she and her spouse and very involved and check on the pt daily. The pt also has neighbors who check in daily. Her pcp is Dr. Cisneros's office and she was sad to see Helene Bazan RUBBER FLAP CUTTER retire but plans to stay with that office. The pt's cell number is [phone] and she carrys it on her person for emergencies. Cm role introduced. Will follow along should hh or snf referrals be indicated.
[2021-10-23 12:04] VITALS: BP 138/88
--- NOTE | 2021-10-23 12:52 | EKG ---
[place] [address] [facility] [place] [address] ELECTROCARDIOGRAM REPORT Name: FRANCA FORD Room #: 170-16 ADM IN M.R.#: [id number] Admission: 10/22/21 Attend Phys: Mulugeta Prajapati MD Discharge: Date of : 37 Report #: [id number] [facility] ED Test Date: 2021-10-23 Test Time: 09:24:23 Pat Name: FRANCA FORD Department: Room: 170 16 Gender: F Bellman Captain: Meka DIAZ : 1935 Requested By: Mulugeta Prajapati Order Number: [id number] : John Esposito Measurements Intervals [place] Rate: 111 P: 62 [place]: 162 QRS: -28 QRSD: 131 T: 145 QT: 369 QTc: 502 Interpretive Statements Sinus tachycardia Atrial premature complex Probable left atrial enlargement Left bundle branch block Baseline wander in lead(s) V4 Compared to ECG 10/22/2021 13:03:33 Sinus rhythm no longer present Electronically Signed On 10-23-2021 12:52:35 WOUND/OSTOMY CLINICAL NURSE SPECIALIST by John Esposito [email or web address] <ELECTRONICALLY SIGNED> By: John Esposito MD, [facility] 10/23/21 1252 John Esposito MD, [facility] /EPI
--- NOTE | 2021-10-23 12:53 | NUR ---
Spoke to Dr. Prajapati about ordering antihypertensives for patient. Reports he will enter orders.
[2021-10-23 17:57] VITALS: BP 94/62
[2021-10-23 18:00] VITALS: BP 137/70
--- NOTE | 2021-10-23 19:40 | NUR ---
ASSUMED CARE OF PT TX FROM ED AT 1800. FOCUSED ASSESSMENT COMPLETED AND IV SITE NOTED TO BE REDDENED. D/C IV, START NEW IN L WRIST. MOUTH SWABS AT BEDSIDE, GRANDDAUGHTER VISITING. CALL LIGHT IN REACH, BEDSIDE TABLE AT BED.
[2021-10-23 20:15] VITALS: BP 158/81
[2021-10-24 00:45] VITALS: BP 133/59
[2021-10-24 04:45] VITALS: BP 147/75
--- NOTE | 2021-10-24 07:04 | NUR ---
PATIENT CARES WHERE ASSUMED AT SHIFT CHANGE. PATIENT WAS ASSESSED AND MEDS WHERE PASSED. AFTER A CHART CHECK THE TELE WAS D/C'D DUE TO PATIENT IS A MED SURG PATIENT. WEIGHT WAS 158.9 TODAY AND ONE LARGE BM. ROUNDS WHERE DONE. THE BED IS IN A LOW AND LOCKED POSITION
[2021-10-24 08:00] VITALS: BP 127/65
[2021-10-24 11:02] LABS: ABSOLUTE NEUTROPHILS 12.2 thou/uL (1.4-8.2); BASOPHILS 0.2 % (0.0-2.0); EOSINOPHILS 0.1 % (0.0-3.0); HEMOGLOBIN 12.3 gm/dL (12.0-15.0); LYMPHOCYTES 4.4 % (24.0-44.0); MCH 29.6 pg (26.0-34.0); MCHC 32.4 g/dL (28.0-37.0); MCV 91.4 fL (80.0-100.0); PLATELET COUNT 233 thou/uL (150-400); POLYS 84.3 % (36.0-66.0); RBC 4.16 mil/uL (4.20-5.00); RDW 14.2 % (10.5-14.5); WBC 14.5 thou/uL (4.0-11.0)
[2021-10-24 11:18] LABS: ALBUMIN 2.5 g/dL (3.4-5.0); CALCIUM 8.3 mg/dL (8.5-10.1); MAGNESIUM 1.7 mg/dL (1.8-2.4); POTASSIUM 3.6 mmol/L (3.5-5.1); TOTAL BILIRUBIN 1.4 mg/dL (0.2-1.0); TOTAL PROTEIN 5.9 g/dL (6.4-8.2)
--- NOTE | 2021-10-24 12:03 | NUR ---
PTS [facility] CALLED CM SEEKING SERVICES FOR PRIVATE DUTY CARE WHEN PT MEDICALLY STABLE TO DC. CHART REVIEWED AND DISCUSSED WITH CARE TEAM. CM MET WITH PT THIS DAY. CM ROLE INTRODUCED. PT REPORTS SHE IS HOPING TO HIRE PRIVATE DUTY CARE GIVERS TO STAY WITH HER 12 HOURS DAILY RATHER THAN GOING TO [facility] FOR REHAB WHICH IS BEING RECOMMENDED. SHE REPORTS SHE LOST HER LAST YEAR, HER DAUGHTER FROM A BRAIN TUMOR, AND HER SON IN AN ACCIDENT AT WORK. PT VERY TEARFUL WANTING TO BE HOME FOR THE HOLIDAYS AND NOT INPT. EMOTIONAL SUPPORT PROVIDED. PT GIVEN PRINTED EDUCATIONAL MATERIALS FOR PRIVATE DUTY CAREGIVING. [facility] ALSO AWARE OF THESE RESOURCES. CM WILL CONTINUE TO FOLLOW.
[2021-10-24 16:30] VITALS: BP 122/56
[2021-10-24 20:02] VITALS: BP 114/68
[2021-10-25 03:26] VITALS: BP 129/70
--- NOTE | 2021-10-25 03:55 | NUR ---
Assumed pt care at 1900. Pt is alert and oriented. Pt complains about the diarrhea that she is having. Pt is unsteady with ambulation. Fall precaution in place. Assessment completed and documented. Scheduled meds administered to pt. During the shift, it was noticed that on the monitor, pt was in AFIB RVR. PATIENT COMPANION notified and consult for cardiology was placed. Cardiology call and Dr Bertrand orders cardizem drip for patient. Patient is on cardizem drip. BP stable. No acute events through the night. Continue to monitor. No further needs at this time.
--- NOTE | 2021-10-25 07:18 | EKG ---
[address] [address] ELECTROCARDIOGRAM REPORT Name: FRANCA FORD Room #: 217-P ADM IN M.R.#: [id number] Admission: 10/22/21 Attend Phys: Mulugeta Prajapati MD Discharge: Date of : 39 Report #: [id number] [facility] Test Date: 2021-10-24 Test Time: 21:36:29 Pat Name: FRANCA FORD Department: Room: 217 P Gender: F Sealant Mixer: SUZIE : [id number] Requested By: Shayy Rodriguez Order Number: [id number] MD: John Esposito Measurements Intervals [place] Rate: 124 P: [place]: QRS: -32 QRSD: 128 T: 142 QT: 355 QTc: 510 Interpretive Statements Atrial fibrillation Left bundle branch block Compared to ECG 10/23/2021 09:24:23 Sinus tachycardia no longer present Atrial premature complex(es) no longer present Electronically Signed On 10-25-2021 7:18:41 MOTEL KEEPER by John Esposito [email or web address] <ELECTRONICALLY SIGNED> By: John Esposito MD, [facility] 10/25/21 0718 35 35 John Esposito MD, [facility] /EPI
[2021-10-25 09:21] VITALS: BP 131/71
[2021-10-25 11:01] LABS: HEMATOCRIT 37.1 % (37.0-47.0); HEMOGLOBIN 12.2 gm/dL (12.0-15.0); MCH 30.1 pg (26.0-34.0); MCHC 32.9 g/dL (28.0-37.0); MCV 91.4 fL (80.0-100.0); RBC 4.06 mil/uL (4.20-5.00); RDW 13.7 % (10.5-14.5); WBC 13.9 thou/uL (4.0-11.0)
--- NOTE | 2021-10-25 16:09 | 2DMMODE ---
[place] [address] 2 D/M-MODE ECHOCARDIOGRAM Name: FRANCA FORD Room #: 217-P ADM IN M.R.#: [id number] Admission: 10/22/21 Attend Phys: Mulugeta Prajapati MD Discharge: Date of : 37 Report #: [id number] THIS REPORT FOR: cc: Helene Bazan DNP, Mary E. DNP Lundgren, Craig H. MD [facility] ~ APPROVED REPORT Study performed: 10/25/2021 13:49:51 EXAM: Comprehensive 2D, Doppler, and color-flow Echocardiogram Patient Location: Bedside Room #: 217 Status: routine BSA: 1.89 HR: 83 bpm BP: 131/71 mmHg Rhythm: Atrial Fibrillation Other Information Study Quality: Adequate Indications Atrial Fibrillation Hypertension/HDD 2D Dimensions RVDd: 34.49 mm IVSd: 8.08 (7-11mm) LVOT Diam: 17.62 (18-24mm) LVDd: 44.78 mm PWd: 7.85 (7-11mm) Ascending Ao: 26.84 (22-36mm) LVDs: 34.36 (25-40mm) Left Atrium: 33.10 (27-40mm) Aortic Root: 20.65 mm IVC: 23.00 mm Volumes Left Atrial Volume (Systole) Single Plane 4CH: 56.32 mL Single Plane 2CH: 40.20 mL LA ESV Index: 28.00 mL/m2 Aortic Valve AoV Peak Brenton.: 1.24 m/s AO Peak Gr.: 6.18 mmHg LVOT Max P.14 mmHg LVOT Max V: 0.89 m/[place] [address] 2 D/M-MODE ECHOCARDIOGRAM Name: FRANCA FORD Room #: 217-P ADM IN M.R.#: [id number] Admission: 10/22/21 Attend Phys: Mulugeta Prajapati MD Discharge: Date of : 39 Report #: [id number] CADE Vmax: 1.74 cm2 Pulmonary Valve PV Peak Brenton.: 0.72 m/s PV Peak Gr.: 2.05 mmHg Tricuspid Valve TR Peak Brenton.: 2.87 m/s TR Peak Gr.: 32.91 mmHg PA Pressure: 43.00 mmHg Left Ventricle The left ventricle is normal size. There is normal LV segmental wall motion. There is normal left ventricular wall thickness. The left ventricular systolic function is normal. The left ventricular ejection fraction is within the normal range. LVEF is 55-60%. This study is not technically sufficient to allow evaluation of the LV diastolic function due to atrial fibrillation. Right Ventricle The right ventricle is normal size. The right ventricular systolic function is normal. Atria Left atrium is at the upper limits of normal. Right atrium is dilated. Aortic Valve Aortic valve is grossly normal in structure. No aortic regurgitation is present. There is no aortic valvular stenosis. Mitral Valve Mild mitral leaflet calcification Mild-moderate mitral regurgitation. No evidence of mitral valve stenosis. Tricuspid Valve The tricuspid valve is normal in structure. There is mild tricuspid regurgitation. Estimated pulmonary artery pressure of 40 mmHg. Pulmonic Valve The pulmonary valve is normal in structure. There is no pulmonic valvular regurgitation. Great Vessels The aortic root is normal in size. IVC is dilated and collapses >50% with inspiration[place] [address] [place] [address] 2 D/M-MODE ECHOCARDIOGRAM Name: FRANCA FORD Room #: 217- ADM IN M.R.#: [id number] Admission: 10/22/21 Attend Phys: Mulugeta Prajapati MD Discharge: Date of : 39 Report #: [id number] Pericardium There is no pericardial effusion. <Conclusion> The left ventricular systolic function is normal. There is normal LV segmental wall motion. LVEF is 55-60%. Left atrium is at the upper limits of normal. Aortic valve is grossly normal in structure. No aortic regurgitation or stenosis Mild mitral leaflet calcification. Mild-moderate mitral regurgitation. There is mild tricuspid regurgitation. Estimated pulmonary artery pressure of 40 mmHg. There is no pericardial effusion. <ELECTRONICALLY SIGNED> By: George Bertrand MD, [facility] 10/25/21 1609 1609 1609 George Bertrand MD, FACC /INF
[2021-10-25 16:44] VITALS: BP 106/59
--- NOTE | 2021-10-25 16:49 | NUR ---
CM MET WITH PT THIS DAY. PT AGREEABLE TO [facility] HAS HAD THEM IN THE PAST AND WOULD LIKE TO RESUME. REFERRAL SENT AND AWAITING ACCEPTANCE. CM TO FOLLOW.
[2021-10-25 19:35] VITALS: BP 123/66
[2021-10-26 00:17] VITALS: BP 127/64
[2021-10-26 03:51] VITALS: BP 142/76
--- NOTE | 2021-10-26 04:21 | NUR ---
Assumed pt care at 1900. Pt is alert and oriented. No sign of distress. Fall precaution in place. Denies pain. Assessment completed and documented. Vital sign stable. Pt is in NSR. Scheduled meds administered to pt. No acute event through the night. No further needs at this time.
[2021-10-26 08:55] VITALS: BP 146/65
[2021-10-26] MEDS ORDERED: PEPCID20 MG PO (12:06)
[2021-10-26] MEDS ORDERED: METRONIDAZOLE500 M4 PO (12:06)
[2021-10-26] MEDS ORDERED: CEFUROXIME500 MG PO (12:06)
[2021-10-26 12:18] VITALS: BP 146/65
--- NOTE | 2021-10-26 12:38 | NUR ---
[facility] HAS ACCEPTED. DC ORDERS AND SUMMARY FAXED TO CLAUDE.
--- NOTE | 2021-10-26 12:57 | NUR ---
PATIENT DISCHARGED. ASSESMENT COMPLETED AND DISCHARGE EDUCATION GIVEN. IV REMOVED AND TELE REMOVED. NO QUESTIONS FROM PATIENT OR HER GRANDDAUGHTER AT BEDSIDE. GRAND DAUGHTER TAKING HOME WITH HOME HEALTH.
== END 2021-10-26 13:15 | disposition home health service (06) | DRG 871 ==
LOC: ER 11:40 → 2N 18:21 → EROBS 18:21 → 2N 10-23 17:58
PROVIDERS: Emergency Medicine; ADMIT Internal Medicine; ATTEND Internal Medicine
DX: A41.9 Sepsis, unspecified organism (principal); N17.0 Acute kidney failure with tubular necrosis; K51.00 Ulcerative (chronic) pancolitis without complications; N17.9 Acute kidney failure, unspecified; G25.81 Restless legs syndrome; E78.5 Hyperlipidemia, unspecified; I48.0 Paroxysmal atrial fibrillation; R91.8 Other nonspecific abnormal finding of lung field; R53.81 Other malaise; I10 Essential (primary) hypertension; I27.20 Pulmonary hypertension, unspecified; K21.9 Gastro-esophageal reflux disease without esophagitis; I34.0 Nonrheumatic mitral (valve) insufficiency; K40.20 Bilateral inguinal hernia, without obstruction or gangrene, not specified as recurrent; E78.00 Pure hypercholesterolemia, unspecified; Z20.822 Contact with and (suspected) exposure to COVID-19; Z79.01 Long term (current) use of anticoagulants; Z90.710 Acquired absence of both cervix and uterus; Z79.899 Other long term (current) drug therapy; Z79.82 Long term (current) use of aspirin; Z88.5 Allergy status to narcotic agent; Z88.8 Allergy status to other drugs, medicaments and biological substances; Z91.09 Other allergy status, other than to drugs and biological substances; Z90.49 Acquired absence of other specified parts of digestive tract
CPT/HCPCS: 10081; 10194

== ENCOUNTER → 2021-11-16 | Outpatient (CLI) | payer OTHER, MEDICARE ==
[~2021-11-16] MED LIST changes: +CEFUROXIME500 MG PO; +METRONIDAZOLE500 M4 PO; +PEPCID20 MG PO
== END ==
LOC: SJCVC 14:49
PROVIDERS: ATTEND Internal Medicine
DX: R94.31 Abnormal electrocardiogram [ECG] [EKG] (principal); I45.4 Nonspecific intraventricular block; I48.0 Paroxysmal atrial fibrillation; I10 Essential (primary) hypertension; E78.5 Hyperlipidemia, unspecified; K51.00 Ulcerative (chronic) pancolitis without complications; I44.7 Left bundle-branch block, unspecified; Z79.82 Long term (current) use of aspirin; Z79.899 Other long term (current) drug therapy; Z88.5 Allergy status to narcotic agent; Z87.891 Personal history of nicotine dependence; Z90.710 Acquired absence of both cervix and uterus; Z98.890 Other specified postprocedural states

== ENCOUNTER 2021-11-22 17:45 | Inpatient (IN) | payer OTHER, MEDICARE ==
[~2021-11-22] VITALS: Ht 165.1 cm; Wt 76.5 kg
[2021-11-22 18:10] VITALS: BP 141/68
[2021-11-22 21:31] LABS: URINE BILIRUBIN NEGATIVE (Negative); URINE BLOOD NEGATIVE (Negative); URINE CLARITY CLEAR; URINE COLOR YELLOW; URINE GLUCOSE-RANDOM* NEGATIVE (Negative); URINE KETONES TRACE (Negative); URINE LEUKOCYTES-REFLEX NEGATIVE (Negative); URINE NITRITE-REFLEX NEGATIVE (Negative); URINE PROTEIN (DIPSTICK) NEGATIVE (Negative); URINE SPECIFIC GRAVITY 1.025 (1.005-1.035); URINE UROBILINOGEN 0.2 E.U./dl (0.2-1.0)
[2021-11-22 22:07] LABS: HEMATOCRIT 37.9 % (37.0-47.0); HEMOGLOBIN 12.8 gm/dL (12.0-15.0); MCH 30.5 pg (26.0-34.0); MCHC 33.8 g/dL (28.0-37.0); MCV 90.2 fL (80.0-100.0); PLATELET COUNT 314 thou/uL (150-400); RDW 15.6 % (10.5-14.5)
[2021-11-22 22:25] LABS: CREATININE 1.1 mg/dL (0.6-1.0); POTASSIUM 3.6 mmol/L (3.5-5.1)
[2021-11-22 22:30] LABS: ALBUMIN 3.3 g/dL (3.4-5.0); TOTAL BILIRUBIN 1.5 mg/dL (0.2-1.0)
[2021-11-22 22:51] LABS: ABSOLUTE NEUTROPHILS 20.5 thou/uL (1.4-8.2)
[2021-11-22 22:52] LABS: ANISOCYTOSIS 1+; PLATELET ESTIMATE NORMAL; POIKILOCYTOSIS 1+; POLYCHROMASIA 1+
[2021-11-23 09:38] VITALS: BP 142/75
--- NOTE | 2021-11-23 09:38 | NUR ---
received report from JAYJAY Kay. Pt boarded in ER, moved to room 24.
--- NOTE | 2021-11-23 10:17 | NUR ---
PT HAD 1 BOWEL MOVEMENT. PT CLEANED UP. SAMPLE SENT TO LAB.
--- NOTE | 2021-11-23 10:58 | NUR ---
pt had bowel movement #2 of the day. Pt cleaned up, stool light brown with orange tent, watery in consistancy.
[2021-11-23] MEDS ORDERED: METROGEL-VAGINA70 GM (11:23)
[2021-11-23] MEDS ORDERED: FLONASE 0.05%50 MCG (11:25)
[2021-11-23] MEDS ORDERED: KRILL OIL 5001 EACH (11:27)
--- NOTE | 2021-11-23 15:00 | NUR ---
PT ADMITTED RELATED TO COLITIS. CM REVIEWED CHART AND SPOKE WITH CARE TEAM. CM CALLED PT'S CELL PHONE THIS DAY AND PT'S GDTR/DPOA DANIEL ANSWERED. SHE INDICATED THAT PT HAD BEEN LIVING IN HER OWN HOUSE ALONE EMTS. SHE CONFIRMED THAT PT HAD DISCHARGED FROM HER 10/26 AND HAD BEEN ON SERVICE WITH [facility] EMTS. SHE INDICATED THAT PT HAS A CANE AND A FWW FOR HOME USE. SHE INDICATED THAT SHE HAD BEEN USING HER WALKER TO ASSIST WITH MOBILITY EMTS. GDTR INDICATED THAT PT HAS 3 STEPS TO ENTER AND A FULL FLIGHT OF STEPS INSIDE THAT SHE HAD BEEN WORKING ON WITH HH PT. GDTR INDICATED THAT HOPE WOULD BE FOR PT TO RETURN HOME WITH [facility]UMPTION OF [facility] ONCE MEDICALLY STABLE. SHE INDICATED THEY WOULDN'T BE OPPOSED TO SHORT TERM POST ACUTE CARE STAY IF NEEDED PTD. PT ON IV ZOSYN AND CEFEPIME, BEING TESTED FOR CDIFF. CM FOLLOWING REGARDING DC PLANNING.
[2021-11-23 17:34] VITALS: BP 123/60
[2021-11-23 18:07] VITALS: BP 118/60
--- NOTE | 2021-11-23 18:10 | NUR ---
attempt #2 to call report to floor. music coordinator notified
--- NOTE | 2021-11-23 18:40 | NUR ---
PT REPORT GIVEN TO JAYJAY ARAMBULA FLOOR NURSE #[id number]
[2021-11-23 20:49] VITALS: BP 111/51
--- NOTE | 2021-11-24 06:10 | NUR ---
NO ACUTE EVENTS. ADMIT HISTORY COMPLETED- PT IS VERY TEARFUL WHEN DISCUSSING RECENT LOSSES AND SUPPORT SYSTEM. 1 LIQUID BM OVERNIGHT. CONCENTS FOR PROCEDURE NOT SIGNED OVER NIGHT- PT COULD NOT CLEARLY DESCRIBE THE PROCEDURE TO THIS RN AND HAD MANY QUESTIONS, WILL PASS TO DAY RN. PT NPO SINCE MIDNIGHT WITH THE EXCEPTION OF ANTIBIOTICS.
[2021-11-24 07:38] LABS: MCH 29.8 pg (26.0-34.0); MCHC 32.1 g/dL (28.0-37.0); RBC 3.55 mil/uL (4.20-5.00); RDW 16.3 % (10.5-14.5); WBC 10.8 thou/uL (4.0-11.0)
[2021-11-24 07:43] LABS: ALBUMIN 2.3 g/dL (3.4-5.0); CALCIUM 7.8 mg/dL (8.5-10.1); CREATININE 0.7 mg/dL (0.6-1.0); PHOSPHORUS 2.9 mg/dL (2.5-4.9)
[2021-11-24 07:47] LABS: POTASSIUM 2.9 mmol/L (3.5-5.1)
[2021-11-24 07:50] LABS: HEMOGLOBIN 10.6 gm/dL (12.0-15.0)
[2021-11-24 07:54] VITALS: BP 134/66
--- NOTE | 2021-11-24 12:13 | NUR ---
Patient transferred to . Met with patient and faith Whitaker. patient on service with [facility] care. She reports inconsistant nursing. She questions having new HH agency. Gave list of HH providers. Requested [facility] liason call patient. Therapy evals ordered. patient is agreeable to acute rehab if needed at tx. She prev declined acute rehab at last admission. If patient to tx overweekend with care. Ask her if she wants [facility]. If she does Call [facility] and fax orders. If she does not want [facility] please ask which HH agency. Call them and fax orders to their fax. [facility] [phone] (p) [phone] (f)
[2021-11-24 15:55] VITALS: BP 132/73
[2021-11-24 19:53] VITALS: BP 114/50
[2021-11-25 06:39] LABS: ALBUMIN 2.4 g/dL (3.4-5.0); CALCIUM 8.1 mg/dL (8.5-10.1); CREATININE 0.7 mg/dL (0.6-1.0); PHOSPHORUS 2.3 mg/dL (2.5-4.9); POTASSIUM 3.5 mmol/L (3.5-5.1)
--- NOTE | 2021-11-25 07:01 | NUR ---
NO ACUTE MEDICAL EVENTS THIS SHIFT. NEW IV PLACED IN LEFT HAND. IV INFUSING PER ORDERS. PT UP TO BSC WITH X1 ASSIST OVER NIGHT. PT DECLINED MORNING MEDS STATING SHE WOULD LIKE TO TAKE THEM LATER. WILL PASS TO DAY NURSE
[2021-11-25 07:25] VITALS: BP 161/75
[2021-11-25 17:00] VITALS: BP 142/65
--- NOTE | 2021-11-25 17:07 | NUR ---
Patient tearful and upset; belived she heard say she was going home saturday. Patient updated with care & discharge plan. Weak this day but worked with PT and did well. Patient encouraged to move more to help with ileus. Patient still having frequent loose stools but tolerating PO vancomycin well. Sandro requested for "scratchy throat" along with lozenges. Friend at bedside this day. Voices no new needs. Fall precautions remain in place.
[2021-11-25 19:43] VITALS: BP 147/61
--- NOTE | 2021-11-26 03:07 | NUR ---
ASSUMED CARE OF PT AT 1900 REPORT RECIEVED ANDREI ASSESSMENT COMPLETE. PT DENIES ANY PAIN AT THIS TIME TIME, ASSISTESD PT C WALKER TO BSC, LOOSE STOOL, MIGUEL CARE DONE. CHANGED BED LINENS. MEDS GIVEN PER MAR. ALL NEEDS MET. HOURLY ROUNDING CONTINUING. CALL LIGHT IN REACH
[2021-11-26 08:05] VITALS: BP 135/75
--- NOTE | 2021-11-26 11:28 | NUR ---
LATE ENTRY, DR CHAPIN PAGED IN REGARDS TO SOB, IRREGULAR HEART RATE. DR NIXON PAGE, ORDERS ENTERED BY DR. AWAD, CORBIN, AND SAMM VARGAS.
[2021-11-26 16:15] VITALS: BP 140/81
[2021-11-26 20:48] VITALS: BP 154/81
--- NOTE | 2021-11-27 03:36 | NUR ---
ASSUMED CARE OF PT AT 1900. REPORT RECIEVED ANDREI ASSESSMENT COMPLETE. NO C/O PAIN. CDIFF PRECAUTIONS IN PLACE. MEDS GIVEN PER JAN. PT HAS INDEPENDENT BED MOBILITY. TELE LEADS IN PLACE. NO LABORED BREATHING NOTED. ALL NEEDS MET, HOURLY ROUNDING CONTINUING. CALL LIGHT IN ERACH
[2021-11-27 08:12] VITALS: BP 164/80
--- NOTE | 2021-11-27 09:02 | NUR ---
ASSUMED CARE OF PT AT 0700 THIS MORNING. PT IS A/OX4 WITH SOME FORGETFULNESS. PT HAS TREMORS AND SHAKING. ASSESSMENTS NOTED ON CHART AND OTHERWISE UNREMARKABLE. FALL PRECAUTIONS ARE IN PLACE DUE TO SHAKING AND TREMORS. CALL LIGHT AND OTHER NEEDS ARE IN REACH. MEDS AND TX GIVEN NEEDED AND SCHEDULED. WILL CONTINUE TO MONITOR AND NOTE ANY CHANGES.
[2021-11-27] MEDS ORDERED: BENADRYL ALLERG25 MG PO (10:10)
[2021-11-27] MEDS ORDERED: FIRVANQ50 MG/1 ML PO (10:10)
[2021-11-27] MEDS ORDERED: BENAZEPRIL HCL20 MG PO (10:11)
[2021-11-27] MEDS ORDERED: FLORANEX GRANU1 EACH PO (10:11)
[2021-11-27] MEDS ORDERED: LOPERAMIDE 2 MG2 M1 PO (10:11)
[2021-11-27 11:47] VITALS: BP 154/91
[2021-11-27 15:54] VITALS: BP 144/82
--- NOTE | 2021-11-27 16:56 | NUR ---
Patient to discharge to [facility] today. Discussed with patient if she wants new agency to alert casemgr on [facility] for new referral prior to home. Patient pleased to be in acute rehab. no further needs
== END 2021-11-27 16:37 | DRG 371 ==
LOC: ER 17:45 → 4S 22:56 → EROBS 22:56 → 4S 11-23 18:34
PROVIDERS: Emergency Medicine; ADMIT Hospitalist; ATTEND Hospitalist
DX: A04.71 Enterocolitis due to Clostridium difficile, recurrent (principal); E43 Unspecified severe protein-calorie malnutrition; K51.00 Ulcerative (chronic) pancolitis without complications; N17.9 Acute kidney failure, unspecified; K56.7 Ileus, unspecified; E87.6 Hypokalemia; D64.9 Anemia, unspecified; I10 Essential (primary) hypertension; E78.5 Hyperlipidemia, unspecified; G25.81 Restless legs syndrome; R53.81 Other malaise; E55.9 Vitamin D deficiency, unspecified; E53.8 Deficiency of other specified B group vitamins; M19.90 Unspecified osteoarthritis, unspecified site; M81.0 Age-related osteoporosis without current pathological fracture; R91.8 Other nonspecific abnormal finding of lung field; E78.00 Pure hypercholesterolemia, unspecified; Z88.6 Allergy status to analgesic agent; Z90.710 Acquired absence of both cervix and uterus; Z68.28 Body mass index [BMI] 28.0-28.9, adult; Z88.8 Allergy status to other drugs, medicaments and biological substances; Z90.49 Acquired absence of other specified parts of digestive tract; Z87.11 Personal history of peptic ulcer disease; Z79.82 Long term (current) use of aspirin; Z79.899 Other long term (current) drug therapy; Z20.822 Contact with and (suspected) exposure to COVID-19
CPT/HCPCS: 10100; 10195

== ENCOUNTER 2021-11-27 12:57 | Inpatient (IN) | payer OTHER, MEDICARE ==
[~2021-11-27] VITALS: Ht 175.3 cm; Wt 67.1 kg
[~2021-11-27 12:57] MED LIST changes: +BENADRYL ALLERG25 MG PO; +BENAZEPRIL HCL20 MG PO; +FIRVANQ50 MG/1 ML PO; +FLONASE 0.05%50 MCG; +FLORANEX GRANU1 EACH PO; +KRILL OIL 5001 EACH; +LOPERAMIDE 2 MG2 M1 PO; +METROGEL-VAGINA70 GM
[2021-11-27 17:42] VITALS: BP 156/94
--- NOTE | 2021-11-27 19:24 | NUR ---
PATIENT ARRIVED ON UNIT 1708 FROM SOUTH. PATIENT ARRIVED BY WHEELCHAIR. NURSING STAFF ASSISTED PATIENT TO BED. VITAL SIGNS STABLE. CONSENTS SIGNED. PATIENT VOICED NO PAIN. MODERATE TO MAXIMUM ASSIST WITH ONE PERSON WITH GAIT BELT AND WALKER STOOD AND PIVOTED TO BED. PATIENT IS A&OX4 AND PATIENT IS CONTINENT OF BOWEL AND BLADDER. TAKES MEDICATIONS WHOLE WITH THIN LIQUIDS.
[2021-11-27 19:30] VITALS: BP 150/87
--- NOTE | 2021-11-28 05:59 | NUR ---
ASSUMED CARE AT 1915 OF 11/27. PATIENT IS A&OX4, ABLE TO MAKE NEEDS KNOWN. DENIES PAIN OR SHORTNESS OF BREATH, INTERMITTENT PRODUCTIVE COUGH NOTED. REMAINS ON PRECAUTION FOR C. DIFF IN STOOLS. HAD ONE SMALL BM THIS MORNING. CONTINENT OF BOWEL AND BLADDER. MODERATE ASSIST FOR TRANSFER TO [facility] USING GB. TOLERATED ORAL MEDS WHOLE WITH THIN LIQUDS. ASSITED WITH REPOSITIONING IN BED. FALL PRECAUTIONS IN PLACE, YELLOW SKID SOCKS ON. CALL LIGHT WITHIN REACH, WILL CONTINUE TO MONITOR.
[2021-11-28 08:00] VITALS: BP 150/89
--- NOTE | 2021-11-28 14:50 | NUR ---
Chart review. New to acute rehab. Weakness. Therapy to eval and tx. Will cont following as needed for dc needs.
--- NOTE | 2021-11-28 19:45 | NUR ---
THIS NURSE ASSUMED CARE OF PATIENT AT 0700. PATIENT IS AOX4 AND COOPERATIVE. PATIENT ENJOYS REGULAR DIET AND TAKES PILLS WHOLE WITH WATER. PATIENT AMBULATES WELL WITH WALKER TO RESTROOM BUT IS FATIGUED AND WEAK. PATIENT IS ON ORAL VANCOMYCIN FOR CDIFF AND SPECIAL PRECAUTIONS IN PLACE. PATIENT VOICED CONCERN ABOUT WHETHER OR NOT [facility] WOULD HELP PAY FOR UPCOMING PROCEDURE.
[2021-11-28 21:58] VITALS: BP 143/75
--- NOTE | 2021-11-29 00:21 | NUR ---
PT ALERT AND ORIENTED X 4, FORGETFUL. PT TAKES MEDS WITH WATER WITHOUT DIFFICULTY. PT DENIES PAIN OR DISCOMFORT. REFUSED TYLENOL AT HS. NO STOOLS SO FAR TONIGHT. BED ALARM ON FOR SAFETY. PT APPEARS TO BE SLEEPING ON HOURLY ROUNDS.
[2021-11-29 06:33] LABS: ABSOLUTE NEUTROPHILS 4.4 thou/uL (1.4-8.2); BASOPHILS 1.2 % (0.0-2.0); EOSINOPHILS 2.5 % (0.0-3.0); HEMATOCRIT 34.8 % (37.0-47.0); HEMOGLOBIN 11.6 gm/dL (12.0-15.0); LYMPHOCYTES 12.7 % (24.0-44.0); MCH 29.8 pg (26.0-34.0); MCHC 33.3 g/dL (28.0-37.0); MCV 89.6 fL (80.0-100.0); MONOCYTES 21.7 % (1.0-8.0); PLATELET COUNT 259 thou/uL (150-400); POLYS 61.9 % (36.0-66.0); RBC 3.89 mil/uL (4.20-5.00); RDW 15.3 % (10.5-14.5); WBC 7.1 thou/uL (4.0-11.0)
[2021-11-29 06:54] LABS: ALBUMIN 2.1 g/dL (3.4-5.0); CALCIUM 7.7 mg/dL (8.5-10.1); CREATININE 0.6 mg/dL (0.6-1.0); MAGNESIUM 1.2 mg/dL (1.8-2.4); TOTAL BILIRUBIN 0.5 mg/dL (0.2-1.0); TOTAL PROTEIN 5.6 g/dL (6.4-8.2)
[2021-11-29 06:55] LABS: POTASSIUM 2.8 mmol/L (3.5-5.1)
--- NOTE | 2021-11-29 07:15 | NUR ---
K+ 2.8 THIS MORNING. CALLED TO [facility] PIZARRO WITH ORDERS RECEIVED. DAY NURSE NOTIFIED OF ORDERS.
[2021-11-29 07:16] LABS: FOLIC ACID 19.7 ng/mL (8.6-58.9)
[2021-11-29 08:17] VITALS: BP 116/63
[2021-11-29] MEDS ORDERED: ZOCOR 20 MG TAB20 M1 PO (11:35)
--- NOTE | 2021-11-29 18:31 | NUR ---
Patient had form stool today.
[2021-11-29 21:16] VITALS: BP 133/80
--- NOTE | 2021-11-30 04:43 | NUR ---
ASSUMED CARE AT 1915 OF 11/29. PATIENT IS A&OX4, FORGETFUL AT TIMES. DENIES PAIN OR SHORTNESS OF BREATH. MINIMAL TO MODERATE ASSIST WITH TRANSFER TO [facility] [place] [place], USING GB AND WALKER. WEAKNESS IN LOWER EXTREMITIES NOTED DURING TOLETING, PATIENT NEEDED A BREAK TO SIT BACK DOWN BEFORE FINISHING TOILETING. PATIENT REQUESTED TO HAVE BRIEF BACK ON FOR THE NIGHT. EDUCATION ON SKIN INTEGRITY PROVIDED, BUT PATIENT INSISTED SHE SOULD LIKE TO KEEP A BRIEF ON BECAUSE OF URGE INCONTINENCE OF BOWEL FROM C-DIFF. PATIENT REMAINS ON PRECAUTIONS FOR C-DIFF IN HER STOOL. PATIENT HAS BEEN HAVING SOFT STOOLS. FALL PRECAUTIONS IN PLACE, CALL LIGHT WITHIN REACH. WILL CONTINUE TO MONITOR.
[2021-11-30 06:29] LABS: CALCIUM 7.9 mg/dL (8.5-10.1); CREATININE 0.5 mg/dL (0.6-1.0); MAGNESIUM 1.4 mg/dL (1.8-2.4)
[2021-11-30 06:40] LABS: POTASSIUM 4.2 mmol/L (3.5-5.1)
[2021-11-30 08:00] VITALS: BP 152/83
--- NOTE | 2021-11-30 12:46 | NUR ---
Team meeting, recommendation. Working with pt and ot. DC 12/08/21 with Rossy bryant ( pt, ot, nursing). She lives alone, support from her granddaughter. She has fww and cane
--- NOTE | 2021-11-30 16:15 | NUR ---
I have reviewed the documentation by XAVIER HIGGINS from 11/30/21 to 11/30/21 and I concur with it. SAMARA CID, PT, DPT
--- NOTE | 2021-11-30 19:35 | NUR ---
ASSUMED CARE OF PT AT 0700. PT IS A&OX4 BUT FORGETFUL AT TIMES. CONTINENT OF B&B. ON ISOLATION FOR C DIFF. PT HAS SEVERE TREMORS IN BOTH HANDS/ARMS.
[2021-11-30 22:24] VITALS: BP 135/74
--- NOTE | 2021-12-01 00:03 | NUR ---
PT ALERT AND ORIENTED X 4, FORGETFUL. UP TO BSC WITH ASSIST X 1. CONT OF BOWEL AND BLADDER. HAND TREMORS NOTED, WORSE NIGHT GOES ON. PT REQUESTED HS MEDS APPROPRIATELY. PT DENIES PAIN OR DISCOMFORT. BED ALARM ON FOR SAFETY. PT AWAKE ON HOURLY ROUNDS. PT STATES SHE HAS BEEN DOZING OFF AND ON TONIGHT.
[2021-12-01 08:29] VITALS: BP 147/79
[2021-12-01 20:22] VITALS: BP 129/72
--- NOTE | 2021-12-02 00:15 | NUR ---
PT ALERT AND ORIENTED X 4. UP TO BSC WITH ASSIST X 1. HAND TREMORS NOTED. PT DENIES PAIN OR DISCOMFORT. BED ALARM ON FOR SAFETY. PT APPEARS TO BE SLEEPING ON HOURLY ROUNDS.
[2021-12-02 05:47] LABS: ABSOLUTE NEUTROPHILS 3.7 thou/uL (1.4-8.2); BASOPHILS 1.1 % (0.0-2.0); EOSINOPHILS 7.2 % (0.0-3.0); HEMATOCRIT 30.9 % (37.0-47.0); HEMOGLOBIN 10.5 gm/dL (12.0-15.0); MCH 30.3 pg (26.0-34.0); MCV 89.2 fL (80.0-100.0); PLATELET COUNT 290 thou/uL (150-400); POLYS 62.7 % (36.0-66.0); RBC 3.47 mil/uL (4.20-5.00); RDW 15.9 % (10.5-14.5)
[2021-12-02 05:52] LABS: CALCIUM 8.6 mg/dL (8.5-10.1); CREATININE 0.7 mg/dL (0.6-1.0); MAGNESIUM 1.6 mg/dL (1.8-2.4); POTASSIUM 4.1 mmol/L (3.5-5.1)
--- NOTE | 2021-12-02 09:14 | NUR ---
PT UP TO BATHROOM AFTER EATING BREAKFAST. PT STATED THAT FOOD GOES THROUGH HER WHEN SHE EATS. PT TOOK MEDS ONE AT A TIME. PT HAS ESSENTIAL TREMORS AND STATED THAT HER MOM DID HAVE IT AND GRANDMA. PT STATED SHE DIDN'T HAVE THE TREMORS BAD UNLESS SHE IS SICK. PT HAS HYPERACTIVE BS.
--- NOTE | 2021-12-02 09:14 | NUR ---
ADM IMMODUIM 2MG PO FOR LOOSE GRITTY STOOL. PT STATED THAT SHE HAS HAD THIS CDIFF FOR 5 WEEKS NOW. SHE STATED THAT SHE WOULD GO ON ABX AND IT WOULD CLEAR, THEN COME BACK AFTER ABX FINISHED.
[2021-12-02 10:39] VITALS: BP 140/73
--- NOTE | 2021-12-02 12:30 | NUR ---
PT REFUSING TO DRINK LUNCH ENSURE, STATED THAT IT GOES RIGHT THROUGH HER.
[2021-12-02 20:00] VITALS: BP 146/80
--- NOTE | 2021-12-03 03:25 | NUR ---
assumed care approx 0 evening 12/02. pt sitting up in w/c alert and oriented x4, pleasant and cooperative. pt with essential tremors. pt took hs meds with water tolerating well. pt in isolation as ordered. pt appears to be sleeping soundly. bed alarm on and call light in reach. will continue to monitor.
--- NOTE | 2021-12-03 16:23 | NUR ---
THIS NURSE ASSUMED CARE OF THIS PATIENT AT 0700. PATIENT A&O X 4. PATIENT EXPERIENCES TREMORS INTERMITTENTLY THROUGH SHIFT. PATIENT UP WITH ONE ASSIST TO TOILET. PATIENT AMBULATED WELL TO CHAIR. IV TEAM INSERTED LEFT HAND PERIPERAL IV D/T MAGNESIUM SULFATE ORDER. PATIENT EXPERIENCING NO PAIN AND HAD ONE FIRMER BOWEL MOVEMENT THIS MORNING. PATIENT IN GOOD SPIRITS.
[2021-12-03 20:34] VITALS: BP 125/50
--- NOTE | 2021-12-03 23:24 | NUR ---
PT ALERT AND ORIENTED X 4. AMB TO BR WITH WALKER AND ASSIST X 1. PT TAKES MEDS WITH A SPOON WITHOUT DIFFICULTY. HAND TREMORS NOTED. NO STOOLS SO FAR TONIGHT. PT DENIES PAIN OR DISOCMFORT. BED ALARM ON FOR SAFETY. PT APPEARS TO BE SLEEPING ON HOURLY ROUNDS.
[2021-12-04 08:45] VITALS: BP 142/59
--- NOTE | 2021-12-04 16:36 | NUR ---
I have reviewed the documentation by XAVIER HIGGINS from 12/04/21 to 12/04/21 and I concur with it. SAMARA CID, PT, DPT
--- NOTE | 2021-12-04 17:42 | NUR ---
THIS NURSE ASSUMED CARE OF THIS PATIENT AT 0700. PATIENT AA X 4. PATIENT EXPERIENCED NO PAIN THIS SHIFT. PATIENT HAD BM THIS AFTERNOON. BM STOOL WAS MORE FORMED THAN PREVIOUS BOWEL MOVEMENTS. PATIENT UP TO BATHROOM WITH ONE ASSIST, GAIT BELT, AND WALKER. APPETITE OF PATIEN IS INCREASING. PATIENT DOES NOT ENJOY CHOCOLATE ENSURE SUPPLEMENTS D/T RESULT OF DIARREA.
[2021-12-04 21:00] VITALS: BP 149/65
--- NOTE | 2021-12-05 05:36 | NUR ---
patient aox4 makes needs known. patient is [place]. patient ambulates to the bathroom with steady gaits. patient needs minimum assistance with adl, bed mobility, transfer and toileting. fall precaution in place. patient in bed asleep at this time breathing regular and unlaboured.
[2021-12-05 08:00] VITALS: BP 132/62
--- NOTE | 2021-12-05 15:29 | NUR ---
PATIENT A&O X 4, ON RA, AND UP WITH ONE ASSIST WITH GAIT BELT AND WALKER. PATIENT EXPERIENCES NO PAIN AND TAKES MEDICATIONS WITH WATER. PATIENT STATED TREMOR MEDICATION IS HELPING ESSENTIAL TREMORS. PATIENT IN SPECIAL PRECAUTIONS FOR CDIFF.
[2021-12-05 19:25] VITALS: BP 124/58
--- NOTE | 2021-12-06 02:52 | NUR ---
ASSUMED PT CARE AT 1900.PT AXOX4 WITH FORGETFULNESS.PT DENIED PAIN SO FAR.U WITH SBA/GB AND WALKER TO THE BR.PT WANTS TO BE INDEPENDENT OF DAILY ACTIVITIES,EDUCATION GIVEN.PT CONT ON FALL AND ISOLATION PRECAUTIONS.BLE EDEMA NOTED.PT ON SANDI IMMODIUM,NO BM NOTED SO FAR THIS SHIFT.PT SLEEPING ON HER BED AT THIS TIME.CALL LIGHT WITHIN REACH.
[2021-12-06 08:00] VITALS: BP 146/83
[2021-12-06 11:38] VITALS: BP 146/83
--- NOTE | 2021-12-06 15:02 | NUR ---
REMAINS ON ISOLATION FOR C-DIFF. HAS BEEN COMPLIANT WITH MEDICATIONS. IS NOW MOD I IN ROOM USING FWW. ESSENTIAL TREMORS ARE NOTED TO BE SOMEWHAT IMPROVED TODAY. PT WAS ABLE TO GRAB MED CUP THIS MORNING AND NOT SPILL ANY MEDICATIONS. DENIES PAIN OR DISCOMFORT.
[2021-12-06 20:14] VITALS: BP 139/68
--- NOTE | 2021-12-07 01:00 | NUR ---
PT ALERT AND ORIENTED X 4. MODIFIED INDEPENDENT IN ROOM WITH WALKER. PT TAKES MEDS WITH WATER WITHOUT DIFFICULTY. HAND TREMORS NOTED, WORSE NIGHT WENT ON. PT DENIES PAIN OR DISCOMFORT. PT APPEARS TO BE SLEEPING ON HOURLY ROUNDS.
[2021-12-07 08:00] VITALS: BP 151/80
[2021-12-07] MEDS ORDERED: FIRVANQ50 MG/1 ML PO (12:10)
--- NOTE | 2021-12-07 13:15 | HC ---
[facility] [place] [address] CONSULTATION Name: FRANCA FORD Room #: 509-P [facility] IN M.R.#: [id number] Admission: 11/27/21 Attend Phys: Jason Vargas MD Discharge: Date of : 37 Report #: [id number] THIS REPORT FOR: cc: Delia Lala MD, Nora P. MD Deutch,Justice Avila. PhD ~ DATE OF SERVICE: 12/03/2021 NEURO BEHAVIORAL STATUS EXAM ATTENDING PHYSICIAN: Dr. Jason Vargas. BROMINATION EQUIPMENT OPERATOR: Justice Queen, PhD CLINICAL PRESENTATION: The patient is an 86-year-old female admitted to the hospital on 11/22/2021 with abdominal pain and diarrhea. She was diagnosed with pancolitis. Her medical problem list includes acute kidney injury, atrial fibrillation, colitis, diarrhea, fracture of the femoral neck, generalized weakness, hypertension, hyperlipidemia, respiratory insufficiency and weakness. Her diagnoses on admission to the rehabilitation unit was medical complexity with generalized debility; C. diff pancolitis; left perihilar mass; leukocytosis, resolving; hypokalemia; acute kidney injury, resolved; AFib; RLS; history of hip fracture and DJD. Cognitive impairment and gait impairment were also noted. A complete description of her medical condition and history can be found in her medical record. Neuropsychological consultation was requested to provide assistance in the assessment of cognitive and emotional status and to provide recommendations and services. Prior to this most recent admission, the patient was living independently in her own home and driving. She had two children, both children have . The patient had two husbands that are also . 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 She is a high school graduate. TECHNIQUES UTILIZED: Clinical interview, review of medical records, staff consultation and behavioral observation, mini mental status exam 2 standard version and brief verbal fluency assessment. EXAMINATION FINDINGS: The patient was alert and cooperative with the assessment. There is no evidence of aphasia. Her thoughts are logical and goal oriented. There is no evidence of thought disorder. She accurately described events surrounding her admission. She describes her symptoms to include decreased sleep, tiredness and fatigue and word finding deficits. Memory is described as within normal limits. [facility] [address] [place] [address] CONSULTATION Name: FRANCA FORD Room #: 509-P [facility] IN .R.#: [id number] Admission: 11/27/21 Attend Phys: Jason Vargas MD Discharge: Date of : 39 Report #: [id number] Performance on the MMSE 2 brief version is within normal limits with a raw score of 16/16. Performance on the MMSE 2 standard version is within normal limits with a raw score of 26/30. However, the patient was 1/5 for serial sevens indicating difficulty with sustained concentration. Verbal fluency as assessed through category/animal within normal limits with raw score of 18. Speech therapy notes indicate cognition, memory, expression and comprehension are now within functional limits. 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 RECOMMENDATIONS: The patient does not report anxiety or depression at this time. She stated feeling optimistic and hopeful about her recovery and ability to return home. Her initial presentation of cognitive disorder appears to be resolving. Follow up neuropsychological testing as an outpatient to clarify cognitive functioning can be scheduled if patient and family are interested. Thank you very much for allowing me to provide the consultation on this patient. <ELECTRONICALLY SIGNED> By: Justice Queen, PhD 12/07/21 1315 [id number] Justice Queen, PhD /nt
--- NOTE | 2021-12-07 15:26 | NUR ---
Team meeting, recommendation, cont. with discharge home with Rossy bryant( pt, ot, nursing) on 12/08/21. Cm visited with patient after team, she cont to agree with discharge plan. Patient granddaughter is going to be her around noon tomorrow for dc. BPCI.
--- NOTE | 2021-12-07 17:52 | NUR ---
PT UP IN ROOM AD RHIANNON, A&OX4, LOOSE BM X1 2/3. FALL PRECAUTIONS MAINTAINED.
[2021-12-07 20:21] VITALS: BP 150/56
--- NOTE | 2021-12-08 02:07 | NUR ---
PT ASSESSMENT COMPLETED AND VSS. MEDS GIVEN ORDERED AND WELL TOLERATED. FALL PRECAUTIONS IN PLACE. CDIFF ISOLATION FOLLOWED. PT STATED THIS EVENING THAT HER BOWEL MOVEMENTS ARE STARTING TO GET FORMED. PT EXCITED ABOUT D/C TOMORROW 12/08/21. PT SLEEPING WELL AT THIS TIME. WILL CONTINUE TO MONITOR FREQUENTLY.
[2021-12-08 05:58] LABS: ABSOLUTE NEUTROPHILS 2.6 thou/uL (1.4-8.2); BASOPHILS 2.3 % (0.0-2.0); EOSINOPHILS 9.7 % (0.0-3.0); HEMATOCRIT 31.4 % (37.0-47.0); HEMOGLOBIN 10.6 gm/dL (12.0-15.0); LYMPHOCYTES 17.5 % (24.0-44.0); MCH 30.7 pg (26.0-34.0); MCHC 33.8 g/dL (28.0-37.0); MCV 90.7 fL (80.0-100.0); MONOCYTES 20.1 % (1.0-8.0); PLATELET COUNT 335 thou/uL (150-400); POLYS 50.4 % (36.0-66.0); RBC 3.46 mil/uL (4.20-5.00); RDW 16.7 % (10.5-14.5); WBC 5.1 thou/uL (4.0-11.0)
[2021-12-08 06:13] LABS: CALCIUM 8.8 mg/dL (8.5-10.1); CREATININE 0.7 mg/dL (0.6-1.0); MAGNESIUM 1.8 mg/dL (1.8-2.4)
[2021-12-08 08:03] VITALS: BP 160/69
[2021-12-08] MEDS ORDERED: VITAMIN D325 MC2 PO (08:09)
[2021-12-08] MEDS ORDERED: CENTRUM SILVER1 EAC4 PO (08:09)
[2021-12-08] MEDS ORDERED: PRIMIDONE50 MG PO (08:09)
[2021-12-08] MEDS ORDERED: PROBIOTIC1 EAC1 PO ×2 (08:09→08:12)
[2021-12-08] MEDS ORDERED: TYLENOL EXTRA500 MG PO (08:09)
[2021-12-08] MEDS ORDERED: LOPERAMIDE 2 MG2 M1 PO (08:09)
[2021-12-08 09:48] VITALS: BP 160/69
[2021-12-08 11:21] VITALS: BP 160/69
--- NOTE | 2021-12-08 12:13 | NUR ---
DC today with [facility]. They have the dc orders and their liason has visited with the pt/family this morning. No other cm interventions indicated.
[2021-12-08] MEDS ORDERED: VANCOMYCIN HCL250 MG PO (14:49)
== END 2021-12-08 11:45 | disposition home health service (06) | DRG 948 ==
PROVIDERS: Nurse Practitioner; Nurse Practitioner Family; ADMIT Physical Medicine & Rehabilitation; ATTEND Physical Medicine & Rehabilitation
DX: R53.81 Other malaise (principal); A04.72 Enterocolitis due to Clostridium difficile, not specified as recurrent; K51.00 Ulcerative (chronic) pancolitis without complications; N17.9 Acute kidney failure, unspecified; E87.6 Hypokalemia; E83.42 Hypomagnesemia; R91.8 Other nonspecific abnormal finding of lung field; E78.5 Hyperlipidemia, unspecified; N18.9 Chronic kidney disease, unspecified; D64.9 Anemia, unspecified; I12.9 Hypertensive chronic kidney disease with stage 1 through stage 4 chronic kidney disease, or unspecified chronic kidney disease; G31.84 Mild cognitive impairment of uncertain or unknown etiology; I48.91 Unspecified atrial fibrillation; M19.90 Unspecified osteoarthritis, unspecified site; E78.00 Pure hypercholesterolemia, unspecified; G25.81 Restless legs syndrome; Z88.5 Allergy status to narcotic agent; Z88.8 Allergy status to other drugs, medicaments and biological substances; Z79.899 Other long term (current) drug therapy; Z91.09 Other allergy status, other than to drugs and biological substances; Z90.710 Acquired absence of both cervix and uterus; Z87.891 Personal history of nicotine dependence
CPT/HCPCS: 10112

== ENCOUNTER → 2021-12-22 | Outpatient (CLI) | payer OTHER, MEDICARE ==
[~2021-12-22] MED LIST changes: +CENTRUM SILVER1 EAC4 PO; +PRIMIDONE50 MG PO; +PROBIOTIC1 EAC1 PO; +VANCOMYCIN HCL250 MG PO; +VITAMIN D325 MC2 PO; +ZOCOR 20 MG TAB20 M1 PO
== END ==
LOC: CAT 11:51
PROVIDERS: ATTEND Pediatrics
DX: J43.9 Emphysema, unspecified (principal); R91.8 Other nonspecific abnormal finding of lung field; I70.0 Atherosclerosis of aorta; J98.11 Atelectasis